=== PATIENT | female | born 1975 | race Caucasian/White ===

== ENCOUNTER 2023-06-22 22:58 | Emergency (ER) | payer MEDICAID, SELFPAY ==
[2023-06-22 22:59] VITALS: BP 137/87; PULSE 105; RESP 18; TEMP 35.6
[2023-06-22 23:00] VITALS: BP 137/87; PULSE 105; RESP 18; TEMP 35.6; BMI 38.0
--- NOTE | 2023-06-22 23:25 | EDS_ITS ---
HPI HPI - GI History of Present Illness Chief Complaint: Abd Pain Informant: patient Narrative Narrative: Abdominal cramping for 2 days. Yesterday morning 1 loose stool 1 vomiting nonbloody. No bowel movement since yesterday morning. She does not have daily bowel movements. She is passing gas. She states throughout the day yesterday increasing bloating with burping bile. Cholecystectomy in the past ventral hernia repair a year ago by Dr. Malave. No urinary symptoms. No fevers. Denies any current nausea. Has been tolerating oral fluids per patient. Prior similar symptoms: Yes PFSH PFSH Home Medications Ibuprofen [Motrin] 800 mg PO TID 07/12/15 [History Last Taken Unknown] Lisinopril/Hydrochlorothiazide [Zestoretic 20/25 Tablet] 1 tab PO DAILY 07/12/15 [History Last Taken Unknown] albuterol sulfate 90 mcg/actuation aerosol inhaler (Ventolin HFA) 2 puff inhalation Q6H PRN PRN Asthma 07/12/15 [History Last Taken Unknown] clonidine HCl 0.2 mg tablet 0.2 mg PO BID 07/12/15 [History Last Taken Unknown] montelukast 10 mg tablet 10 mg PO DAILY 07/12/15 [History Last Taken Unknown] multivitamin with folic acid 400 mcg tablet (Thera) 1 tab PO DAILY 07/12/15 [History Last Taken Unknown] albuterol sulfate 2.5 mg/3 mL (0.083 %) solution for nebulization 2.5 mg inhalation Q6H PRN PRN Sob &/Or Wheezing 11/04/16 [History Last Taken Unknown] cyclobenzaprine 10 mg tablet 10 mg PO TID PRN Muscle Spasm ##20 11/04/16 [Rx Last Taken Unknown] ibuprofen 800 mg tablet 800 mg PO Q8H PRN PRN Pain #20 tabs 11/04/16 [Rx Last Taken Unknown] ipratropium bromide 17 mcg/actuation HFA aerosol inhaler (Atrovent HFA) 1 puff inhalation PRN PRN Sob &/Or Wheezing 11/04/16 [History Last Taken Unknown] lisinopril 20 mg-hydrochlorothiazide 25 mg tablet (Zestoretic) 1 ea PO QHS PRN PRN Swelling 11/04/16 [History Last Taken Unknown] dicyclomine 20 mg tablet 20 mg PO TID PRN abdominal pain #20 tabs 06/23/23 [Rx Last Taken Unknown] ondansetron 4 mg disintegrating tablet 4 mg PO Q8H PRN PRN Nausea #10 tabs 06/23/23 [Rx Last Taken Unknown] Allergy/AdvReac Type Severity Reaction Status Date / Time morphine Allergy Hives Verified 06/22/23 23:00 Social History Smoking Status: Current every day smoker tobacco type: cigarettes ROS ROS ED Constitutional Constitutional ED: Denies chills, fever(s) or sweats Eyes Eyes: Denies change in vision ENT ENT ED: Denies dysphagia or sore throat Cardiovascular Cardiovascular: Denies chest pain, leg edema, palpitations or racing heartbeat Respiratory/Chest Respiratory/Chest: Denies cough, dyspnea or dyspnea on exertion Gastrointestinal Gastrointestinal: Reports abdominal pain, diarrhea and vomiting; Denies nausea Genitourinary Genitourinary ED: Denies dysuria, hematuria or urinary frequency Musculoskeletal Musculoskeletal: Denies back pain, extremity pain or neck pain Integumentary Denies rash or wounds Neurologic Neurologic: Denies headache(s), paresthesias or weakness EXAM Physical Exam Const Vital Signs: 06/22/23 23:00 06/22/23 22:59 06/23/23 00:46 Temperature 96.1 F L 96.1 F L Temperature Source Temporal Temporal Pulse Rate 105 H 105 H 89 Respiratory Rate 18 18 15 Blood Pressure 137/87 H 137/87 H 141/83 H Blood Pressure Mean 103 103 102 Pulse Ox 96 Oxygen Delivery Method Room Air 06/23/23 02:00 06/23/23 03:01 Temperature 98.1 F Temperature Source Pulse Rate 92 95 Respiratory Rate 18 16 Blood Pressure 146/96 H 156/98 H Blood Pressure Mean 112 117 Pulse Ox 98 97 Oxygen Delivery Method Room Air Positive well nourished and well developed General Appearance ED: well developed and NAD HEENT Reports moist mucous membranes and dry mucous membranes normocephalic and atraumatic Mouth ED: Yes dry mucous membranes Mouth: dry mucous membranes Eyes PERRL, EOMs intact bilaterally and conjunctivae normal General Eye ED: Yes normal appearance of both eyes Neck no lymphadenopathy and supple General: Negative for tenderness Chest Wall Chest: Negative for tenderness Resp normal respiratory effort and normal air movement Effort and Inspection: symmetric chest movement; Negative for respiratory distress Cardio regular rhythm and no murmurs Rate: tachycardic Peripheral Pulses: pulses 2+ throughout GI non-tender GI Narrative: hypoactive bowel sounds. Negative Rick's McBurney's tenderness. Palpation: Negative for guarding or rebound tenderness present Back/Spine no CVA tenderness and no thoracic nor lumbar tenderness Extremity normal to inspection General Extremety ED: Negative for edema or tenderness General Extremity: Negative for edema Neuro oriented x3 and no sensory deficits noted Sensorium / Orientation: awake and alert Skin no rashes or lesions noted and no wounds MDM MDM MDM Narrative Medical decision making narrative: Interventions / MDM: Differential diagnosis: Abdominal cramping Diagnosis considered but do not suspect: Small bowel obstruction however CT negative. No clinical ischemic colitis. My EKG interpretation: N/A Imaging independently reviewed and interpreted by myself: CT abdomen pelvis: No bowel obstruction. Per mild wall thickening of the central small bowel, per radiology infectious versus inflammatory and also in the differential for possible bowel ischemia. External documents reviewed: N/A Test considered but not ordered:N/A ED course: Patient nonsurgical abdomen. Cramping reported distention with burping. She had surgical history. Abdominal labs along with CT scan ordered to rule out bowel obstruction. Fluids were started. Patient did not require any pain medications. Labs white count normal lipase liver enzymes and renal function stable. CT scan radiology no obstruction small bowel thickening, related differential for bowel ischemia. Added a lactic acid was normal. Abdomen remains soft on reevaluation. Discussed with patient radiology read with bowel ischemia and differential. Discussed ordering CT angiogram for further evaluation however she declines at this time. Clinically there is no ischemic bowel there is no pain out of proportion. Shared decision was made with the patient. Patient is written for antispasmodics and antiemetics to use as needed. Return precaution discussed. All questions were answered. Re-evaluation: stable Disposition discussed with patient/family/significant other: Patient Case discussed with consulting clinician: N/A This note was generated with [employer] dictation software. It may contain incorrect words, spelling, and punctuation that were not noted in checking the note before signing. Lab Data Attestation: I reviewed the patient's lab results. Labs: Laboratory Results - last 24 hr 06/22/23 06/23/23 23:49 01:48 WBC 10.1 RBC 5.52 H Hgb 15.1 H Hct 46.4 MCV 84.1 MCH 27.4 MCHC 32.5 RDW Std Deviation 40.3 RDW Coeff of Camila 13.1 Plt Count 176 MPV 11.2 Immature Gran % (Auto) 0.500 Neut % (Auto) 69.7 Lymph % (Auto) 18.2 L [place] % (Auto) 10.0 Eos % (Auto) 1.1 Baso % (Auto) 0.5 Absolute Neuts (auto) 7.0 Absolute Lymphs (auto) 1.83 Nucleated RBC % 0 Sodium 133 L Potassium 3.3 L Chloride 100 Carbon Dioxide 28.0 Anion Gap 5 BUN 34 H Creatinine 1.03 H Estim Creat Clear Calc 81.58 Est GFR (MDRD) Af Amer 74 Est GFR (MDRD) Non-Af 61 BUN/Creatinine Ratio 33.0 H Glucose 153 H Lactic Acid 0.7 Calcium 8.8 Total Bilirubin 2.00 H AST 8 L ALT 13 Alkaline Phosphatase 76 Total Protein 7.2 Albumin 3.0 L Globulin 4.2 Albumin/Globulin Ratio 0.7 L Lipase 15 Radiography Diagnostic Testing: Clinical Impression(s) from Imaging Studies Abdomen/Pelvis CT 06/23/23 23:24 IMPRESSION: Mild wall thickening involving loops of central small bowel, as well as stranding and prominent lymph nodes in the central mesentery. This may be secondary to an infectious or inflammatory enteritis, but a follow-up CT angiogram with arterial and venous phase imaging is recommended to evaluate the mesenteric vessels in order to assess for possible bowel ischemia. Electronically Signed: Shen Root MD at 1:00 EDT , ADDENDUM: 06/23/23 0117 IMPRESSION: Mild wall thickening involving loops of central small bowel, as well as stranding and prominent lymph nodes in the central mesentery. This may be secondary to an infectious or inflammatory enteritis, but a follow-up CT angiogram with arterial and venous phase imaging is recommended to evaluate the mesenteric vessels in order to assess for possible bowel ischemia. N.B. : Zane Sainz DO, confirmed on 06/23/2023 01:10:13 (ET) that the healthcare facility has received the radiology report. Electronically Signed: Shen Root MD at 1:00 EDT , Discharge Plan Triage Chief Complaint: Abd Pain ED Provider: Zane Sainz Dx/Rx/DC Orders Clinical Impression: Abdominal cramping Instructions: Abdominal Pain Prescriptions: New ondansetron [ondansetron] 4 mg tablet,disintegrating 4 mg PO Q8H PRN PRN (Reason: Nausea) Qty: 10 0RF dicyclomine 20 mg tablet 20 mg PO TID PRN (Reason: abdominal pain) Qty: 20 0RF No Action clonidine HCl 0.2 MG tablet 0.2 mg PO BID montelukast 10 MG tablet 10 mg PO DAILY albuterol sulfate [Ventolin HFA] 1 INHALER inhaler 2 puff inhalation Q6H PRN PRN (Reason: Asthma) multivitamin with folic acid [Thera] 1 TABLET tablet 1 tab PO DAILY Ibuprofen [Motrin] 800 MG tablet 800 mg PO TID Lisinopril/Hydrochlorothiazide [Zestoretic 20/25 Tablet] 1 TABLET tablet 1 tab PO DAILY albuterol sulfate 2.5 MG/3 ML solution for nebulization 2.5 mg inhalation Q6H PRN PRN (Reason: Sob &/Or Wheezing) lisinopril-hydrochlorothiazide [Zestoretic] 1 EACH tablet 1 ea PO QHS PRN PRN (Reason: Swelling) ipratropium bromide [Atrovent HFA] 12.9 GM inhaler 1 puff inhalation PRN PRN (Reason: Sob &/Or Wheezing) cyclobenzaprine 10 MG tablet 10 mg PO TID PRN (Reason: Muscle Spasm) Qty: 20 0RF ibuprofen 800 MG tablet 800 mg PO Q8H PRN PRN (Reason: Pain) Qty: 20 0RF Primary Care Provider: Shantel Whitney Referrals: Shantel Whitney MD [Primary Care Provider] - 3-5 Days if not improving Town Doctor,Out of [Non-Staff] - Activity Restrictions/Additional Instructions: Your CT scan with no obstruction. There was thickening of your small bowels, recommended CT angiograms. You declined this in the ED. However your pain is not out of proportion to worry about any sick ischemic bowel. Monitor symptoms take medications as prescribed. If symptoms worsen, return to ED for evaluation. Otherwise follow-up with your doctor. Disposition Disposition: Home, Self Care Discharge Date/Time: 06/23/23 03:05
[2023-06-22 23:56] LABS: Absolute Lymphocyte Count 1.83 X10^3/uL (0.83-4.51); Basophil# 0.05 X10^3/uL; Basophil% 0.5 % (0-1); Eosinophil# 0.11 X10^3/uL; Eosinophils% 1.1 % (0-5); Hematocrit 46.4 % (37-47); Hemoglobin 15.1 g/dL (12.0-15.0); Lymphocyte # 1.83 X10^3/ul (0.83-4.51); Lymphocyte % 18.2 % (19-41); Mean Corp Hgb Conc 32.5 g/dL (32-36); Mean Corpuscular Hgb 27.4 pg (27.0-32.0); Mean Corpuscular Volume 84.1 fL (81-99); Mean Platelet Vol. 11.2 fl (6.2-12.0); Monocyte# 1.01 X10^3/uL; NRBC Flagged by Analyzer 0 % (0-5); Neutrophil # 7.01 X10^3/uL (2.7-7.7); Neutrophil % 69.7 % (47-70); Platelet Count 176 K/mm3 (150-450); RBC Distribution Width CV 13.1 % (11.6-14.6); RBC Distribution Width SD 40.3 fl (35.1-43.9); Red Blood Count 5.52 M/mm3 (4.2-5.4); White Blood Count 10.1 K/mm3 (4.4-11.0)
[2023-06-23] MEDS: 0.9% Normal Saline (1000mL) 1,000 ML 1000 ML IV (00:45)
[2023-06-23 00:46] VITALS: BP 141/83; PULSE 89; RESP 15; O2SAT 96
[2023-06-23 01:08] LABS: ALB/GLOB Ratio 0.7 RATIO (0.9-2.4); AST(SGOT) 8 U/L (15-37); Alanine Aminotransfer ALT/SGPT 13 U/L (13-56); Alkaline Phosphatase 76 U/L (45-117); Anion Gap 5 (5-15); BUN 34 mg/dL (7-18); Calcium,Total 8.8 mg/dL (8.5-10.1); Chloride 100 mmol/L (98-107); Creatinine, Serum 1.03 mg/dL (0.55-1.02); EST Glomerular Filtration Rate 61 mL/min (>60); Est Glom Filt Rate - Afr Amer 74 mL/min (>60); Estimated Creatinine Clearance 81.58 ml/min; Globulin 4.2 g/dL (2.2-4.2); Glucose 153 mg/dL (74-106); Lipase 15 U/L (13-75); Potassium 3.3 mmol/L (3.5-5.1); Protein, Total 7.2 g/dL (6.4-8.2); Sodium Level 133 mmol/L (136-145)
[2023-06-23 02:00] VITALS: BP 146/96; PULSE 92; RESP 18; O2SAT 98
[2023-06-23 02:38] LABS: Lactic Acid 0.7 mmol/L (0.4-1.9)
[2023-06-23 03:01] VITALS: BP 156/98; PULSE 95; RESP 16; TEMP 36.7; O2SAT 97
--- NOTE | 2023-06-23 23:24 | CT_ITS ---
ACR Level 3 findings have been noted. An addendum which confirms receipt of the report will follow. EXAM: CT ABDOMEN AND PELVIS WITHOUT INTRAVENOUS CONTRAST CLINICAL INDICATION: Pain TECHNIQUE: Helically acquired images were obtained of the abdomen and pelvis without intravenous contrast. This CT exam was performed using one or more of the following dose reduction techniques: automated exposure control, adjustment of the mA and/or kV according to patient size, and/or use of iterative reconstruction technique. RADIATION DOSE: CTDIvol = 21.89 mGy, DLP = 1082.96 mGy-cm COMPARISON: No relevant prior studies available. FINDINGS: LOWER THORAX: Unremarkable. Lung bases are clear. No cardiomegaly. No significant pericardial effusion. ABDOMEN: LIVER: Unremarkable. Homogeneous. GALLBLADDER AND BILE DUCTS: Cholecystectomy. No intra- or extrahepatic biliary ductal dilation. PANCREAS: Unremarkable. No focal cystic mass. SPLEEN: Unremarkable. Normal size without focal cystic or solid mass. ADRENALS: Unremarkable. No nodules. KIDNEYS AND URETERS: Unremarkable. Normal renal size and position. No hydronephrosis. STOMACH AND BOWEL: Some mild wall thickening involving loops of central small bowel. Diverticular disease of the colon but no diverticulitis. No stomach or bowel distention. PELVIS: APPENDIX: The appendix is normal. BLADDER: Unremarkable. REPRODUCTIVE: Unremarkable as visualized. No mass. ABDOMEN and PELVIS: INTRAPERITONEAL SPACE: Small amount of free fluid in the pelvis. No free air. BONES/JOINTS: Unremarkable. No suspicious lytic or blastic abnormality. SOFT TISSUES: Unremarkable. No discrete abdominal or pelvic wall hernia. VASCULATURE: Unremarkable. Abdominal aorta is non-dilated. LYMPH NODES: Some stranding and prominent lymph nodes in the central mesentery. CT/Abdomen/Pelvis without Cont IMPRESSION: Mild wall thickening involving loops of central small bowel, as well as stranding and prominent lymph nodes in the central mesentery. This may be secondary to an infectious or inflammatory enteritis, but a follow-up CT angiogram with arterial and venous phase imaging is recommended to evaluate the mesenteric vessels in order to assess for possible bowel ischemia. Electronically Signed: Shen Root MD at 1:00 EDT ,
== END 2023-06-23 03:05 | disposition home or self-care (01) ==
PROVIDERS: Emergency Provider Emergency Medicine; PCP Student in an Organized Health Care Education/Training Program; Visit Provider Emergency Medicine
DX: R10.9 Unspecified abdominal pain (principal); F17.210 Nicotine dependence, cigarettes, uncomplicated; Z90.49 Acquired absence of other specified parts of digestive tract
CPT/HCPCS: 74176; 80053; 83605; 83690; 85025; 96360; 99283; J7030; A4216

== ENCOUNTER 2025-02-21 09:09 | Observation (INO) | payer MEDICAID, SELFPAY ==
[2025-02-21] VITALS (14 sets, daily range): BP systolic 138–170; BP diastolic 63–83; PULSE 77–95; RESP 15–22; TEMP 36.1–37.2; O2SAT 94–97; BMI 45.2; BMI 42.5
--- NOTE | 2025-02-21 09:29 | EKG12_ITS ---
Test Reason : SOB Blood Pressure : */* mmHG Vent. Rate : 84 BPM Atrial Rate : 84 BPM P-R Int : 128 ms QRS Dur : 90 ms QT Int : 374 ms P-R-T Axes : 41 22 123 degrees QTcB Int : 441 ms Normal sinus rhythm T wave abnormality, consider lateral ischemia Abnormal ECG Confirmed by Angelo Jerez ([id number]), telegraph editor STEPHANIE SAAVEDRA ([id number]) on 02/23/2025 11:31:43 AM Also confirmed by Angelo Jerez ([id number]), telegraph editor STEPHANIE SAAVEDRA ([id number]) on 02/24/2025 10:56:07 AM Referred By: Confirmed By: Angelo Jerez
--- OUTSIDE RECORDS SUMMARY | 2025-02-21 09:35 | XMS RPT_ITS | CCD ---
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 [facility] Care Team Providers Care Audio Video Mechanic Name Role Phone Unavailable Primary Care Provider UnavailZane Modi Attending Unavailable Love Whitney Primary Care Unavailable MAU MALDONADO DO Admitting Unavailable LOVE WHITNEY MD Referring Unavailable LOVE WHITNEY MD Consulting Unavailable MAU MALDONADO DO Attending Unavailable MAU MALDONADO DO Primary Care Unavailable PROVIDER, UNKNOWN Consulting Unavailable PROVIDER, UNKNOWN Consulting Unavailable LOVE WHITNEY MD Attending Unavailable LOVE WHITNEY MD Consulting Unavailable LOVE WHITNEY MD Primary Care Unavailable LOVE WHITNEY MD Admitting Unavailable PROVIDER, UNKNOWN Consulting Unavailable PROVIDER, UNKNOWN Consulting Unavailable LOVE WHITNEY MD Admitting Unavailable LOVE WHITNEY MD Attending Unavailable LOVE WHITNEY MD Consulting Unavailable LOVE WHITNEY MD Primary Care Unavailable PROVIDER, UNKNOWN Consulting Unavailable PROVIDER, UNKNOWN Consulting Unavailable DAFNE JORGE Admitting Unavailable LOVE WHITNEY MD Consulting Unavailable DAFNE JORGE Attending Unavailable DAFNE JORGE Primary Care Unavailable PROVIDER, UNKNOWN Consulting Unavailable PROVIDER, UNKNOWN Consulting Unavailable LOVE WHITNEY MD Consulting Unavailable MAU MALDONADO DO Admitting Unavailable MAU MALDONADO DO Attending Unavailable MAU MALDONADO DO Primary Care Unavailable PROVIDER, UNKNOWN Consulting Unavailable PROVIDER, UNKNOWN Consulting Unavailable Allergies Allergy Classification Reported Allergen(s) Allergy Type Date of Onset Reaction(s) Facility (1 source) Morphine Drug Allergy 06-22-2023 [facility] (1 source) Morphine Drug Allergy 06-22-2023 [facility] Repository (1 source) Morphine Drug Allergy [facility] Repository Medications Current Medications Medication Drug Class(es) Dates Sig (Normalized) Sig (Original) albuterol 0.83 mg/ml inhalation solution (2 sources) beta2-Adrenergic Agonist Start: 11-04-2016 take 2.5 mg by inhalation every six hours as needed Albuterol Sulfate Active 2.5 MG INHALATION EVERY 6 HOURS NEEDED November 04, 2016 12:00am Start: 07-12-2015 Albuterol Sulf ate (Ventolin Hfa (Sp)) 1 INHALER inhaler Active 2 PUFF INHALATION EVERY 6 HOURS NEEDED July 12, 2015 12:00am cloNIDine hydrochloride 0.2 mg oral tablet (1 source) Central alpha-2 Adrenergic Agonist Start: 07-12-2015 take 0.2 mg by mouth twice daily Clonidine Hcl Active 0.2 MG PO TWICE A DAY July 12, 2015 12:00am cyclobenzaprine hydrochloride 10 mg oral tablet (1 source) Muscle Relaxant Start: 11-04-2016 take 10 mg by mouth three times daily Cyclobenzaprine Active 10 MG PO THREE TIMES A DAY November 04, 2016 12:00am dicyclomine hydrochloride 20 mg oral tablet (1 source) Anticholinergic Start: 06-23-2023 take 20 mg by mouth three times daily Dicyclomine Active 20 MG PO THREE TIMES A DAY June 23, 2023 2:54am hydroCHLOROthiazide 25 mg / lisinopril 20 mg oral tablet (2 sources) Thiazide Diuretic, Angiotensin Converting Enzyme Inhibitor Start: 11-04-2016 take 20-25 mg by mouth at bedtime as needed Lisinopril-Hydroch lorothiazide (Zestoretic 20-25 Mg Tablet) 1 EACH tablet Active 1 EACH PO AT BEDTIME NEEDED November 04, 2016 12:00am Start: 07-12-2015 Lisinopril/Hyd rochlorothiazide (Zestoretic 20/25 Tablet) 1 TABLET tablet Active 1 TABLET PO DAILY July 12, 2015 12:00am ibuprofen 800 mg oral tablet (2 sources) Nonsteroidal Anti-inflammatory Drug Start: 11-04-2016 take 800 mg by mouth every eight hours as needed Ibuprofen Active 800 MG PO EVERY 8 HOURS NEEDED November 04, 2016 12:49am Start: 07-12-2015 take 1 tablet by eliana th three times daily Ibuprofen (Motrin) 800 MG tablet Active 800 MG PO THREE TIMES A DAY July 12, 2015 12:00am 200 actuat ipratropium bromide 0.017 mg/actuat metered dose inhaler (1 source) Anticholinergic Start: 11-04-2016 Ipratropium [place] (Atrovent (Sp)) 12.9 GM inhaler Active 1 PUFF INHALATION NEEDED November 04, 2016 12:00am montelukast 10 mg oral tablet (1 source) Leukotriene Receptor Antagonist Start: 07-12-2015 take 10 mg by mouth once daily Montelukast Active 10 MG PO DAILY July 12, 2015 12:00am Multivitamin With Folic Acid (Thera) 1 TABLET tablet (1 source) Start: 07-12-2015 take 1 tablet by mouth once daily Multivitamin With Folic Acid (Thera) 1 TABLET tablet Active 1 TABLET PO DAILY July 12, 2015 12:00am ondansetron 4 mg disintegrating oral tablet (1 source) Serotonin-3 Receptor Antagonist Start: 06-23-2023 take 4 mg by mouth every eight hours as needed Ondansetron Active 4 MG PO EVERY 8 HOURS NEEDED June 23, 2023 12:00am Problems Problem Classification Problem Date Documented Da te Episodic/Chronic Abdominal hernia (1 source) Ventral hernia without obstruction or gangrene; Translations: [Ventral hernia without obstruction or gangrene] Onset: 10-13-2023 Episodic Abdominal pain (2 sources) Finding of sensation of abdomen; Translations: [Unspecified abdominal pain] Onset: 06-28-2023 06-23-2023 Episodic Essential hypertension (1 source) Essential (primary) hypertension; Translations: [Essential (primary) hypertension] Onset: 10-13-2023 Chronic Other aftercare (1 source) Other mcc (current) drug therapy; Translations: [Other mcc (current) drug therapy] Onset: 10-13-2023 Episodic Other nutritional; endocrine; and metabolic disorders (1 source) Morbid (severe) obesity due to excess calories; Translations: [Morbid (severe) obesity due to excess calories] Onset: 10-13-2023 Chronic Results Test Name Value Interpretation Reference Range Facility CBC + DIFFon 10-13-2023 Baso # 0.01 x10EE3/UL Normal 0.00 - 0.10 [facility] Comment on above: Performed By: #### 2 [id number] #### [facility],[address] [place] [address] Basophils/100 WBC (Bld) 0.1 % Normal 0.0 - 2.0 [facility] Comment on above: Performed By: #### 2 91998 #### [facility],[address] [place] [address] CBC + DIFF Normal [facility] Comment on above: Result Comment: CBC- COMPLETE BLOOD COUNT Performed By: #### 2 43061 #### [facility],[address] [place] [address] EO # 0.18 x10EE3/UL Normal 0.00 - 0.50 [facility] Comment on above: Performed By: #### 2 19309 #### [place] [address] Eosinophils/100 WBC (Bld) 2.1 % Normal 0.0 - 7.0 [facility] Comment on above: Performed By: #### 2 72054 #### [place] [address] Erythrocyte distribution width (RBC) [Ratio] 14.3 % Normal 12.0 - 15.6 [facility] Comment on above: Performed By: #### 2 24705 #### [place] [address] Hematocrit (Bld) [Volume fraction] 41.8 % Normal 34.0 - 46.0 [facility] Comment on above: Performed By: #### 2 56790 #### [facility],[address] [place] [address] Hemoglobin (Bld) [Mass/Vol] 14.3 g/dL Normal 12.0 - 16.0 [facility] Comment on above: Performed By: #### 2 56913 #### [facility],[address] [place] [address] Lymph # 1.56 x10EE3/UL Normal 0.80 - 2.80 [facility] Comment on above: Performed By: #### 2 65963 #### [address],[place] [address] Lymphocytes/100 WBC (Bld) 17.4 % Low 20.0 - 45.0 [facility] Comment on above: Performed By: #### 2 94246 #### [facility],[address] [place] [address] MANUAL DIFF N/A Normal [facility] Comment on above: Performed By: #### 2 89116 #### [facility],[address] [place] [address] MCH (RBC) [Entitic mass] 28 pg Normal 27 - 33 [facility] Comment on above: Performed By: #### 2 78173 #### [facility],[address] [place] [address] MCHC 34 X10 3 Normal 32 - 36 [facility] Comment on above: Performed By: #### 2 63571 #### [place] [address] MCV (RBC) [Entitic vol] 83 fL Normal 80 - 99 [facility] Comment on above: Performed By: #### 2 01992 #### [facility],[address] [place] [address] [place] # 0.39 x10EE3/UL Normal 0.20 - 1.00 [facility] Comment on above: Performed By: #### 2 62497 #### [facility],[address] [place] [address] MONOS % 4.3 % Normal 0.0 - 10.0 [facility] Comment on above: Performed By: #### 2 70387 #### [place] [address] Morphology Jayson (Bld) [Interp] N/A Normal [facility] Comment on above: Performed By: #### 2 62275 #### [facility],[address],[place] [address] Neut # 6.84 x10EE3/UL Normal 1.50 - 7.10 [facility] Comment on above: Performed By: #### 2 31747 #### [facility],[address] [place] [address]45[address] Neutrophils/100 WBC (Bld) 76.2 % High 46.0 - 76.0 [facility] Comment on above: Performed By: #### 2 48533 #### [facility],[address] [place] [address] 56803 PLATELET 200 x10EE3/UL Normal 150 - 450 [facility] Comment on above: Performed By: #### 2 49469 #### [facility],[address] [place] [address] 82567 Platelet mean volume (Bld) [Entitic vol] 9.0 fL Normal 6.6 - 10.5 [facility] Comment on above: Result Comment: AUTO MATED DIFFERENTIAL Performed By: #### 2 22277 #### [facility],[address] [place] [address] 50762 RBC 5.06 x 10EE6/UL Normal 4.10 - 5.30 [facility] Comment on above: Performed By: #### 2 03518 #### [facility],[address] [place] [address] 34021 WBC 9.0 x 10EE3/UL Normal 4.5 - 10.8 [facility] Comment on above: Performed By: #### 2 03316 #### [facility],[address] [place] [address] 32598 CHEST 1 VIEWon 10-13-2023 CHEST 1 VIEW [place] [address] Patient: TATYANA SPENCE Phone#: : 1975 Age: 47 Gender: F Pt. Type: ER Account: [id number] Location: [facility] Ordering: MAU MALDONADO Exam Date: 10/13/2023/20:02 Family Phys: LOVE WHITNEY Charge Code: [id number] Physician: [place] Order #: [id number] Dose#: PROCEDURE: X-RAY CHEST 1 VIEW COMPARISON: [facility], XR, CHEST 2 VIEWS, 03/02/2021, 8:57. INDICATIONS: Dyspnea. FINDINGS: LUNGS: Increased interstitial markings. No focal asymmetric abnormality. VASCULATURE: Normal. Unremarkable pulmonary vasculature. CARDIAC: Cardiomegaly MEDIASTINUM: Normal. No visible mass or adenopathy. PLEURA: Normal. No effusion or pleural thickening. BONES: Normal. No fracture or visible bony lesion. OTHER: Negative. CONCLUSION: 1. Cardiomegaly 2. Increased interstitial markings concerning for pulmonary edema. Dictated by: Natalia Arias MD on 10/14/2023 at 9:28 Approved by: Natalia Arias MD on 10/14/2023 at 9:30 Normal [facility] CMP with eGFRon 10-13-2023 AGE 47 years Normal [facility] Comment on above: Performed By: #### 2 94648 #### [facility],[address] [place] [address] 57781 Albumin [Mass/Vol] 3.3 g/dL Low 3.4 - 5.0 [facility] Comment on above: Performed By: #### 2 24006 #### [facility],[address] [place] [address] 68859 Albumin/Globulin [Mass ratio] 1.0 {ratio} Normal 0.9 - 1.6 [facility] Comment on above: Performed By: #### 2 93415 #### [facility],[address] [place] [address] 58980 ALK PHOS 100 U/L Normal 46 - 116 [facility] Comment on above: Performed By: #### 2 04254 #### [facility],[address] [place] [address] 93591 ALT [Catalytic activity/Vol] 24 U/L Normal 16 - 63 [facility] Comment on above: Performed By: #### 2 72579 #### [facility],[address] [place] [address] 68584 Anion gap [Moles/Vol] 10 mmol/L Normal 10 - 20 [facility] Comment on above: Performed By: #### 2 62935 #### [facility],[address] [place] [address] 88254 AST [Catalytic activity/Vol] 15 U/L Normal 13 - 39 [facility] Comment on above: Performed By: #### 2 39840 #### [facility],[address] [place] [address] 78888 B/C RATIO 15 ratio Normal 0 - 30 [facility] Comment on above: Performed By: #### 2 67781 #### [facility],[address] [place] [address] 13499 Bilirubin [Mass/Vol] 1.2 mg/dL High 0.2 - 1.0 [facility] Comment on above: Performed By: #### 2 33710 #### [facility],[address] [place] [address] 68275 Calcium [Mass/Vol] 8.6 mg/dL Normal 8.5 - 10.1 [facility] Comment on above: Performed By: #### 2 23130 #### [facility],[address] [place] [address] 41524 Chloride [Moles/Vol] 103 mmol/L Normal 98 - 107 [facility] Comment on above: Performed By: #### 2 34011 #### [facility],[address] [place] [address] 61096 CMP with eGFR Normal [facility] Comment on above: Result Comment: COMP REHENSIVE METABOLIC PANEL Performed By: #### 2 58224 #### [facility],[address] [place] [address] 51742 CO2 [Moles/Vol] 28.3 mmol/L Normal 21.0 - 32.0 [facility] Comment on above: Performed By: #### 2 74045 #### [facility],[address] [place] [address] 77836 Creatinine [Mass/Vol] 0.98 mg/dL Normal 0.55 - 1.02 [facility] Comment on above: Performed By: #### 2 12622 #### [facility],[address] [place] [address] 76015 GFR/1.73 sq M.predicted among non-blacks MDRD (S/P/Bld) [Vol rate/Area] mL/min/{1.73_m2} Normal 60 - 999 [facility] Comment on above: Performed By: #### 2 65924 #### [facility],[address] [place] [address] 19565 Result Comment: ACCO RDING TO THE NATIONAL KIDNEY DISEASE EDUCATION PROGRAM(NKDE), A NORMAL eGFR IS A VALUE GREATER THAN OR EQUAL TO 60 ML/MIN/1.73 SQ METERS. CHRONIC KIDNEY DISEASE: <60mL/MIN/1.73 SQ METERS KIDNEY FAILURE: <15mL/MIN/1.73 SQ METERS THIS TEST SHOULD ONLY BE USED FOR PATIENTS 18 YEARS OF AGE AND OLDER. Globulin (S) [Mass/Vol] 3.4 g/dL Normal 1.5 - 3.8 [facility] Comment on above: Performed By: #### 2 69262 #### [facility],[address] [place] [address] 58245 Glucose [Mass/Vol] 163 mg/dL High 74 - 106 [facility] Comment on above: Performed By: #### 2 01024 #### [facility],[address] [place] [address] 57010 Potassium [Moles/Vol] 3.5 mmol/L Normal 3.5 - 5.1 [facility] Comment on above: Performed By: #### 2 22729 #### [facility],[address] [place] [address] 64680 Protein [Mass/Vol] 6.7 g/dL Normal 6.4 - 8.2 [facility] Comment on above: Performed By: #### 2 67907 #### [facility],[address] [place] [address] 68454 Sodium [Moles/Vol] 138 mmol/L Normal 136 - 145 [facility] Comment on above: Performed By: #### 2 52324 #### [facility],[address] [place] [address] 93684 Urea nitrogen [Mass/Vol] 15 mg/dL Normal 7 - 18 [facility] Comment on above: Performed By: #### 2 12049 #### [facility],[address] [place] [address] 38138 D-DIMER, QUANTITATIVEon 10-02 D-DIMER QUANT <200 Normal 0 - 230 [facility] Comment on above: Performed By: #### 2 32078 #### [facility],[address] [place] [address] 72911 D-DIMER, QUANTITATIVE Normal [facility] Comment on above: Result Comment: MCKAY T D-DIMER Performed By: #### 2 92948 #### [facility],[address] [place] [address] 63724 NT-proBNPon 10-13-2023 Natriuretic peptide B (Bld) [Mass/Vol] 312 pg/mL High 0 - 125 [facility] Comment on above: Performed By: #### 2 20958 #### [facility],[address] [place] [address] 40819 TROPONIN I, HIGH SENSITIVITY on 10-13-2023 HS TROPONIN 8.8 pg/mL Normal 0.0 - 51.4 [facility] Comment on above: Performed By: #### 2 81406 #### [facility],[address] [place] [address] 36067 HS TROPONIN 6.6 pg/mL Normal 0.0 - 51.4 [facility] Comment on above: Performed By: #### 2 27643 #### [facility],[address] [facility] [address] Abdomen/Pelvis without Conto n 06-24-2023 Abdomen/Pelvis without Cont [facility] [address] [place] [address] Abdomen/Pelvis without Cont MR#: [id number] Acct: [id number] Name: TATYANA SPENCE Rep #: [id number] : 1975 F 47 From: Shen Root MD PCP: Dr. Love Whitney MD Status: REG ER Study: Abdomen/Pelvis without Cont Date of Exam: 06/03 03/27 Exam# [id number] Ordering Dr: Zane Sainz DO ADDENDUM by Dr. Shen Root MD on 06/23/23 at 0100 [id number] EXAM: CT ABDOMEN AND PELVIS WITHOUT INTRAVENOUS CONTRAST CLINICAL INDICATION: Pain TECHNIQUE: Helically acquired images were obtained of the abdomen and pelvis without intravenous contrast. This CT exam was performed using one or more of the following dose reduction techniques: automated exposure control, adjustment of the mA and/or kV according to patient size, and/or use of iterative reconstruction technique. RADIATION DOSE: CTDIvol = 21.89 mGy, DLP = 1082.96 mGy-cm COMPARISON: No relevant prior studies available. FINDINGS: LOWER THORAX: Unremarkable. Lung bases are clear. No cardiomegaly. No significant pericardial effusion. ABDOMEN: LIVER: Unremarkable. Homogeneous. GALLBLADDER AND BILE DUCTS: Cholecystectomy. No intra- or extrahepatic biliary ductal dilation. PANCREAS: Unremarkable. No focal cystic mass. SPLEEN: Unremarkable. Normal size without focal cystic or solid mass. ADRENALS: Unremarkable. No nodules. KIDNEYS AND URETERS: Unremarkable. Normal renal size and position. No hydronephrosis. STOMACH AND BOWEL: Some mild wall thickening involving loops of central small bowel. Diverticular disease of the colon but no diverticulitis. No stomach or bowel distention. PELVIS: APPENDIX: The appendix is normal. BLADDER: Unremarkable. REPRODUCTIVE: Unremarkable as visualized. No mass. ABDOMEN and PELVIS: INTRAPERITONEAL SPACE: Small amount of free fluid in the pelvis. No free air. BONES/JOINTS: Unremarkable. No suspicious lytic or blastic abnormality. SOFT TISSUES: Unremarkable. No discrete abdominal or pelvic wall hernia. VASCULATURE: Unremarkable. Abdominal aorta is non-dilated. LYMPH NODES: Some stranding and prominent lymph nodes in the central mesentery. 06/23/23 0100 Date cc: Dr. Love Whitney MD; Dr. Zane Sainz DO * Signed ADDENDUM by Dr. Shen Root MD on 06/23/[address]/Abdomen/Pelvis without Cont IMPRESSION: Mild wall thickening involving loops of central small bowel, as well as stranding and prominent lymph nodes in the central mesentery. This may be secondary to an infectious or inflammatory enteritis, but a follow-up CT angiogram with arterial and venous phase imaging is recommended to evaluate the mesenteric vessels in order to assess for possible bowel ischemia. N.B. : Zane Sainz DO, confirmed on 06/23/2023 01:10:13 (ET) that the healthcare facility has received the radiology report. Electronically Signed: Shen Root MD at 1:00 EDT , 06/23/23 0117 Date cc: Dr. Love Whitney MD; Dr. Zane Sainz DO * Signed ACR Level 3 findings have been noted. An addendum which confirms receipt of the report will follow. [id number] EXAM: CT ABDOMEN AND PELVIS WITHOUT INTRAVENOUS CONTRAST CLINICAL INDICATION: Pain TECHNIQUE: Helically acquired images were obtained of the abdomen and pelvis without intravenous contrast. This CT exam was performed using one or more of the following dose reduction techniques: automated exposure control, adjustment of the mA and/or kV according to patient size, and/or use of iterative reconstruction technique. RADIATION DOSE: CTDIvol = 21.89 mGy, DLP = 1082.96 mGy-cm COMPARISON: No relevant prior studies available. FINDINGS: LOWER THORAX: Unremarkable. Lung bases are clear. No cardiomegaly. No significant pericardial effusion. ABDOMEN: LIVER: Unremarkable. Homogeneous. GALLBLADDER AND BILE DUCTS: Cholecystectomy. No intra- or extrahepatic biliary ductal dilation. PANCREAS: Unremarkable. No focal cystic mass. SPLEEN: Unremarkable. Normal size without focal cystic or solid mass. ADRENALS: Unremarkable. No nodules. KIDNEYS AND URETERS: Unremarkable. Normal renal size and position. No hydronephrosis. STOMACH AND BOWEL: Some mild wall thickening involving loops of central small bowel. Diverticular disease of the colon but no diverticulitis. No stomach or bowel distention. PELVIS: APPENDIX: The appendix is normal. BLADDER: Unremarkable. REPRODUCTIVE: Unremarkable as visualized. No mass. ABDOMEN and PELVIS: INTRAPERITONEAL SPACE: Small amount of free fluid in the pelvis. No free air. CORNELIO (more content not included)... Normal [facility] Basophil percentageOrdered B y: Zane Sainz on 06-23-2023 Lactate [Moles/Vol] 0.7 mmol/L 0.4-2.0 [facility] CBC W/Diff, Automatedon 06-03 Absolute Lymph 1.83 X10 3/uL Normal 0.83-4.51 [facility] Comment on above: Performed By: #### L 501.2450, L500.4050, L100.0100 #### [facility] [address] [place], [address] Absolute Neut 7.0 X10 3/uL Normal 2.0-7.7 [facility] Comment on above: Performed By: #### L 501.2450, L500.4050, L100.0100 #### [facility] [address] [place], [address] Basophils/100 WBC (Bld) 0.5 % Normal 0-1 [facility] Comment on above: Performed By: #### L 501.2450, L500.4050, L100.0100 #### [facility] [address] [place], [address] Eosinophils/100 WBC (Bld) 1.1 % Normal 0-5 [facility] Comment on above: Performed By: #### L 501.2450, L500.4050, L100.0100 #### [facility] [address] [place], [address] Erythrocyte distribution width (RBC) [Ratio] 13.1 % Normal 11.6-14.6 [facility] Comment on above: Performed By: #### L 501.2450, L500.4050, L100.0100 #### [facility] [address] [place], [address] Hematocrit (Bld) [Volume fraction] 46.4 % Normal 37-47 [facility] Comment on above: Performed By: #### L 501.2450, L500.4050, L100.0100 #### [facility] [address] [place], [address] Hemoglobin (Bld) [Mass/Vol] 15.1 g/dL High 12.0-15.0 [facility] Comment on above: Performed By: #### L 501.2450, L500.4050, L100.0100 #### [facility] [address] [place], [address] IG% 0.500 Normal 0.0-0.9 [facility] Comment on above: Result Comment: IG% - Immature Granulocytes (promyelocytes, myelocytes and metamyelocytes) > 1% indicates that a LEFT SHIFT is Present. Performed By: #### L 501.2450, L500.4050, L100.0100 #### [facility] [address] [place], [address] Lymphocytes/100 WBC (Bld) 18.2 % Low 19-41 [facility] Comment on above: Performed By: #### L 501.2450, L500.4050, L100.0100 #### [facility] [address] [place], [address] MCH (RBC) [Entitic mass] 27.4 pg Normal 27.0-32.0 [facility] Comment on above: Performed By: #### L 501.2450, L500.4050, L100.0100 #### [facility] [address] [place], [address] MCHC (RBC) [Mass/Vol] 32.5 g/dL Normal 32-36 [facility] Comment on above: Performed By: #### L 501.2450, L500.4050, L100.0100 #### [facility] [address] [place], [address] MCV (RBC) [Entitic vol] 84.1 fL Normal 81-99 [facility] Comment on above: Performed By: #### L 501.2450, L500.4050, L100.0100 #### [facility] [address] [place], [address] Monocytes/100 WBC (Bld) 10.0 % Normal 0-10 [facility] Comment on above: Performed By: #### L 501.2450, L500.4050, L100.0100 #### [facility] [address] [place], [address] Neutrophils/100 WBC (Bld) 69.7 % Normal 47-70 [facility] Comment on above: Performed By: #### L 501.2450, L500.4050, L100.0100 #### [facility] [address] [place], [address] Nucleated RBC (Bld) [#/Vol] 0 10*3/uL Normal 0-5 [facility] Comment on above: Performed By: #### L 501.2450, L500.4050, L100.0100 #### [facility] [address] [place], [address] Platelet mean volume (Bld) [Entitic vol] 11.2 fL Normal 6.2-12.0 [facility] Comment on above: Performed By: #### L 501.2450, L500.4050, L100.0100 #### [facility] [address] [place], [address] Platelets (Bld) [#/Vol] 176 10*3/uL Normal 150-450 [facility] Comment on above: Performed By: #### L 501.2450, L500.4050, L100.0100 #### [facility] [address] [place], [address] RBC (Bld) [#/Vol] 5.52 10*6/uL High 4.2-5.4 [facility] Comment on above: Performed By: #### L 501.2450, L500.4050, L100.0100 #### [facility] [address] [place], [address] RDW SD 40.3 fl Normal 35.1-43.9 [facility] Comment on above: Performed By: #### L 501.2450, L500.4050, L100.0100 #### [facility] [address] [place], [address] WBC (Bld) [#/Vol] 10.1 10*3/uL Normal 4.4-11.0 [facility] Comment on above: Performed By: #### L 501.2450, L500.4050, L100.0100 #### [facility] [address] [place], [address] Comprehensive Metabolic Prof ilon 06-23-2023 Albumin [Mass/Vol] 3.0 g/dL Low 3.2-5.0 [facility] Comment on above: Performed By: #### L 501.2450, L500.4050, L100.0100 #### [facility] [address] [place], [address] Albumin/Globulin [Mass ratio] 0.7 {ratio} Low 0.9-2.4 [facility] Comment on above: Performed By: #### L 501.2450, L500.4050, L100.0100 #### [facility] [address] [place], [address] ALK P 76 U/L Normal 45-117 [facility] Comment on above: Performed By: #### L 501.2450, L500.4050, L100.0100 #### [facility] [address] [place], [address] ALT [Catalytic activity/Vol] 13 U/L Normal 13-56 [facility] Comment on above: Performed By: #### L 501.2450, L500.4050, L100.0100 #### [facility] [address] [place], [address] AST [Catalytic activity/Vol] 8 U/L Low 15-37 [facility] Comment on above: Performed By: #### L 501.2450, L500.4050, L100.0100 #### [facility] [address] [place], [address] Bilirubin [Mass/Vol] 2.00 mg/dL High 0.20-1.[address] [facility] Comment on above: Result Comment: For patients on eltrombopag therapy, use of Dimension Lyons TBIL is not recommended. Performed By: #### L 501.2450, L500.4050, L100.0100 #### [facility] [address] [place], [address] BUN/CRE 33.0 RATIO High 10-20 [facility] Comment on above: Performed By: #### L 501.2450, L500.4050, L100.0100 #### [facility] [address] [place], [address] CA,Total 8.8 mg/dL Normal 8.5-10.1 [facility] Comment on above: Performed By: #### L 501.2450, L500.4050, L100.0100 #### [facility] [address] [place], [address] Chloride [Moles/Vol] 100 mmol/L Normal 98-[address] [facility] Comment on above: Performed By: #### L 501.2450, L500.4050, L100.0100 #### [facility] [address] [place], [address] CO2 [Moles/Vol] 28.0 mmol/L Normal 21.0-32.0 [facility] Comment on above: Performed By: #### L 501.2450, L500.4050, L100.0100 #### [facility] [address] [place], [address] Creatinine [Mass/Vol] 1.03 mg/dL High 0.55-1.02 [facility] Comment on above: Result Comment: The validity of the calculated GFR GFRAA in patients over 70 years has not been determined. Clinical correlation is essential. Performed By: #### L 501.2450, L500.4050, L100.0100 #### [facility] [address] [place], [address] ECRCL 81.58 ml/min Normal [facility] Comment on above: Performed By: #### L 501.2450, L500.4050, L100.0100 #### [facility] [address] [place], [address] EST GFR - AA 74 mL/min Normal >60 [facility] Comment on above: Result Comment: Afri can Montenegrin GFR Calc Performed By: #### L 501.2450, L500.4050, L100.0100 #### [facility] [address] [place], [address] GAP 5 Normal 5-15 [facility] Comment on above: Performed By: #### L 501.2450, L500.4050, L100.0100 #### [facility] [address] [place], [address] GFR/1.73 sq M.predicted among non-blacks MDRD (S/P/Bld) [Vol rate/Area] 61 mL/min/{1.73_m2} Normal >60 [facility] Comment on above: Result Comment: Non- GFR Calc Performed By: #### L 501.2450, L500.4050, L100.0100 #### [facility] [address] [place], [address] Globulin (S) [Mass/Vol] 4.2 g/dL Normal 2.2-4.2 [facility] Comment on above: Performed By: #### L 501.2450, L500.4050, L100.0100 #### [facility] [address] [place], [address] Glucose [Mass/Vol] 153 mg/dL High 74-106 [facility] Comment on above: Result Comment: Fast ing Glucose result greater than or equal to 126 mg/dL suggests DIABETES MELLITUS per A.D.A. criteria. Performed By: #### L 501.2450, L500.4050, L100.0100 #### [facility] [address] [place], [address] Potassium [Moles/Vol] 3.3 mmol/L Low 3.5-5.1 [facility] Comment on above: Performed By: #### L 501.2450, L500.4050, L100.0100 #### [facility] [address] [place], [address] Sodium [Moles/Vol] 133 mmol/L Low 136-145 [facility] Comment on above: Performed By: #### L 501.2450, L500.4050, L100.0100 #### [facility] [address] [place], [address] T PROT 7.2 g/dL Normal 6.4-8.2 [facility] Comment on above: Performed By: #### L 501.2450, L500.4050, L100.0100 #### [facility] [address] [place], [address] Urea nitrogen [Mass/Vol] 34 mg/dL High 7-18 [facility] Comment on above: Performed By: #### L 501.2450, L500.4050, L100.0100 #### [facility] [address] [place], [address] Emergency Department Summary on 06-23-2023 Emergency Department Summary [facility] Medical Records Department [address] [place] [address] Emergency Department Summary 06/22/23 MR#: [id number] Acct: [id number] Name: TATYANA SPENCE Rep #: [id number] : 1975 47 From: Zane [place] PCP: Dr. Love Whitney MD Status:DEP ER Location: ED HPI HPI - GI History of Present Illness Chief Complaint: Abd Pain Informant: patient Narrative Narrative: Abdominal cramping for 2 days. Yesterday morning 1 loose stool 1 vomiting nonbloody. No bowel movement since yesterday morning. She does not have daily bowel movements. She is passing gas. She states throughout the day yesterday increasing bloating with burping bile. Cholecystectomy in the past ventral hernia repair a year ago by Dr. Jorge. No urinary symptoms. No fevers. Denies any current nausea. Has been tolerating oral fluids per patient. Prior similar symptoms: Yes PFSH PFSH Home Medications Ibuprofen [Motrin] 800 mg PO TID 07/12/15 [History Last Taken Unknown] Lisinopril/Hydrochlo rothiazide [Zestoretic 20/25 Tablet] 1 tab PO DAILY 07/12/15 [History Last Taken Unknown] albuterol sulfate 90 mcg/actuation aerosol inhaler (Ventolin HFA) 2 puff inhalation Q6H PRN PRN Asthma 07/12/15 [History Last Taken Unknown] clonidine HCl 0.2 mg tablet 0.2 mg PO BID 07/12/15 [History Last Taken Unknown] montelukast 10 mg tablet 10 mg PO DAILY 07/12/15 [History Last Taken Unknown] multivitamin with folic acid 400 mcg tablet (Thera) 1 tab PO DAILY 07/12/15 [History Last Taken Unknown] albuterol sulfate 2.5 mg/3 mL (0.083 %) solution for nebulization 2.5 mg inhalation Q6H PRN PRN Sob /Or Wheezing 11/04/16 [History Last Taken Unknown] cyclobenzaprine 10 mg tablet 10 mg PO TID PRN Muscle Spasm ##20 11/04/16 [Rx Last Taken Unknown] ibuprofen 800 mg tablet 800 mg PO Q8H PRN PRN Pain #20 tabs 11/04/16 [Rx Last Taken Unknown] ipratropium bromide 17 mcg/actuation HFA aerosol inhaler (Atrovent HFA) 1 puff inhalation PRN PRN Sob /Or Wheezing 11/04/16 [History Last Taken Unknown] lisinopril 20 mg-hydrochlorothiazi de 25 mg tablet (Zestoretic) 1 ea PO QHS PRN PRN Swelling 11/04/16 [History Last Taken Unknown] dicyclomine 20 mg tablet 20 mg PO TID PRN abdominal pain #20 tabs 06/23/23 [Rx Last Taken Unknown] ondansetron 4 mg disintegrating tablet 4 mg PO Q8H PRN PRN Nausea #10 tabs 06/23/23 [Rx Last Taken Unknown] Allergy/AdvReac Type Severity Reaction Status Date / Time morphine Allergy Hives Verified 06/22/23 23:00 Social History Smoking Status: Current every day smoker tobacco type: cigarettes ROS ROS ED Constitutional Constitutional ED: Denies chills, fever(s) or sweats Eyes Eyes: Denies change in vision ENT ENT ED: Denies dysphagia or sore throat Cardiovascular Cardiovascular: Denies chest pain, leg edema, palpitations or racing heartbeat Respiratory/Chest Respiratory/Chest: Denies cough, dyspnea or dyspnea on exertion Gastrointestinal Gastrointestinal: Reports abdominal pain, diarrhea and vomiting; Denies nausea Genitourinary Genitourinary ED: Denies dysuria, hematuria or urinary frequency Musculoskeletal Musculoskeletal: Denies back pain, extremity pain or neck pain Integumentary Denies rash or wounds Neurologic Neurologic: Denies headache(s), paresthesias or weakness EXAM Physical Exam Const Vital Signs: 06/22/23 23:00 06/22/23 22:59 06/23/23 00:46 Temperature 96.1 F L 96.1 F L Temperature Source Temporal Temporal Pulse Rate 105 H 105 H 89 Respiratory Rate 18 18 15 Blood Pressure 137/87 H 137/87 H 141/83 H Blood Pressure Mean 103 103 102 Pulse Ox 96 Oxygen Delivery Method Room Air 06/23/23 02:00 06/23/23 03:01 Temperature 98.1 F Temperature Source Pulse Rate 92 95 Respiratory Rate 18 16 Blood Pressure 146/96 H 156/98 H Blood Pressure Mean 112 117 Pulse Ox 98 97 Oxygen Delivery Method Room Air Positive well nourished and well developed General Appearance ED: well developed and NAD HEENT Reports moist mucous membranes and dry mucous membranes normocephalic and atraumatic Mouth ED: Yes dry mucous membranes Mouth: dry mucous membranes Eyes PERRL, EOMs intact bilaterally and conjunctivae normal General Eye ED: Yes normal appearance of both eyes Neck no lymphadenopathy and supple General: Negative for tenderness Chest Wall Chest: Negative for tenderness Resp normal respiratory effort and normal air movement Effort and Inspection: symmetric chest movement; Negative for respiratory distress Cardio regular rhythm and no murmurs Rate: tachycardic Peripheral Pulses: pulses 2+ throughout GI non-tender GI Narrative: hypoactive bowel sounds. Negative Rick's McBurney's tenderness. Palpation: Negative for guarding or rebound tenderness prese (more content not included)... Normal [facility] Lactic Acidon 06-23-2023 Lactate [Moles/Vol] 0.7 mmol/L Normal 0.4-1.9 [facility] Comment on above: Order Comment: Y Performed By: #### L 503.6005 #### [facility] [address] [place], [address] Lipaseon 06-23-2023 Lipase [Catalytic activity/Vol] 15 U/L Normal 13-75 [facility] Comment on above: Result Comment: Kimmy tolentino note: LIPASE revised reference range effective 22. New Lipase methodology. Expected to produce lower values than the previous assay method. NEW Reference Range: 13 - 75 U/L Performed By: #### L 501.2450, L500.4050, L100.0100 #### [facility] [address] [place], [address] Absolute lymphocyte countOrd ered By: Zane Sainz on 06-22-2023 Lymphocytes Auto (Unsp spec) [#/Vol] 1.83 10*3/uL 0.83-4.51 [facility] Automated lymphocyte count a s percentage of total leukocytesOrdered By: Zane Sainz on 06-22-2023 Lymphocytes/100 WBC Auto (Unsp spec) 18.2 % 19-41 [facility] Basophil percentageOrdered B y: Zane Sainz on 06-22-2023 Basophils/100 WBC (Bld) 0.5 % 0-1 [facility] Bilirubin [Mass/Vol] 2.00 mg/dL 0.20-1.[address] [facility] Comment on above: For patients on eltr ombopag therapy, use of Dimension Lyons TBIL is not recommended. Chloride [Moles/Vol] 100 mmol/L 98-[address] [facility] Eosinophils/100 WBC (Bld) 1.1 % 0-5 [facility] Glucose [Mass/Vol] 153 mg/dL 74-106 [facility] Comment on above: Fasting Glucose resu lt greater than or equal to 126 mg/dL suggests DIABETES MELLITUS per A.D.A. criteria. Hemoglobin (Bld) [Mass/Vol] 15.1 g/dL 12.0-15.0 [facility] Monocytes/100 WBC (Bld) 10.0 % 0-10 [facility] Neutrophils (Bld) [#/Vol] 7.0 10*3/uL 2.0-7.7 [facility] Neutrophils/100 WBC (Bld) 69.7 % 47-70 [facility] Potassium [Moles/Vol] 3.3 mmol/L 3.5-5.1 [facility] Protein [Mass/Vol] 7.2 g/dL 6.4-8.2 [facility] Sodium [Moles/Vol] 133 mmol/L 136-145 [facility] WBC (Bld) [#/Vol] 10.1 10*3/uL 4.4-11.0 [facility] Determination of erythrocyte mean corpuscular volume (MCV)Ordered By: Zane Sainz on 06-22-2023 MCV (RBC) [Entitic vol] 84.1 fL 81-99 [facility] Erythrocyte distribution wid th ratioOrdered By: Zane Sainz on 06-22-2023 Erythrocyte distribution width (RBC) [Ratio] 13.1 % 11.6-14.6 [facility] Erythrocyte distribution wid th standard deviationOrdered By: Zane Sainz on 06-22-2023 Erythrocyte distribution width (RBC) [Entitic vol] 40.3 fL 35.1-43.9 [facility] Hematocrit Auto (Bld) [Volum e fraction]Ordered By: Zane Sainz on 06-22-2023 Hematocrit (Bld) [Volume fraction] 46.4 % 37-47 [facility] Immature granulocytes/100 WB C Auto (Bld)Ordered By: Zane Sainz on 06-22-2023 Immature granulocytes/100 WBC (Bld) 0.500 % 0.0-0.9 [facility] Comment on above: IG% - Immature Granu locytes (promyelocytes, myelocytes and metamyelocytes) > 1% indicates that a LEFT SHIFT is Present. Laboratory - Chemistry and C hemistry - challengeOrdered By: Zane Sainz on 06-22-2023 Albumin/Globulin [Mass ratio] 0.7 {ratio} 0.9-2.4 [facility] ALP [Catalytic activity/Vol] 76 U/L 45-117 [facility] ALT [Catalytic activity/Vol] 13 U/L 13-56 [facility] CO2 [Moles/Vol] 28.0 mmol/L 21.0-32.0 [facility] Globulin (S) [Mass/Vol] 4.2 g/dL 2.2-4.2 [facility] Lipase [Catalytic activity/Vol] 15 U/L 13-75 [facility] Comment on above: Please note:LIPASE r evised reference range effective 22. New Lipase methodology. Expected to produce lower values than the previous assay method. NEW Reference Range: 13 - 75 U/L Urea nitrogen/Creatinine [Mass ratio] 33.0 mg/mg -20 [facility] - Hematology and Cell countsOrdered By: Zane Sainz on 06-22-2023 MCH (RBC) [Entitic mass] 27.4 pg 27.0-32.0 [facility] MCHC (RBC) [Mass/Vol] 32.5 g/dL 32-36 [facility] Nucleated RBC/100 WBC (Bld) [Ratio] 0 % 0-5 [facility] Platelet mean volume (Bld) [Entitic vol] 11.2 fL 6.2-12.0 [facility] Platelets (Bld) [#/Vol] 176 10*3/uL 150-450 [facility] No Panel InformationOrdered By: Zane Sainz on 06-22-2023 Estimated Creatinine Clearance Calc 81.58 ml/min [facility] Estimated GFR (MDRD) Amer 74 mL/min >60 [facility] Comment on above: GFR Calc Estimated GFR (MDRD) Non-Af Amer 61 mL/min >60 [facility] Comment on above: Non- GFR Calc RBC Auto (Bld) [#/Vol]Ordere d By: Zane Sainz on 06-22-2023 RBC (Bld) [#/Vol] 5.52 10*6/uL 4.2-5.4 [facility] Serum or plasma calcium daiana urement (mass/volume)Ordered By: Zane Sainz on 06-22-2023 Calcium [Mass/Vol] 8.8 mg/dL 8.5-10.1 [facility] Serum or plasma creatinine m easurement (mass/volume)Ordered By: Zane Sainz on 06-22-2023 Creatinine [Mass/Vol] 1.03 mg/dL 0.55-1.02 [facility] Comment on above: The validity of the calculated GFR & GFRAA in patients over 70 years has not been determined. Clinical correlation is essential. Serum or plasma urea nitroge n measurement (mass/volume)Ordered By: Zane Sainz on 06-22-2023 Urea nitrogen [Mass/Vol] 34 mg/dL 7-18 [facility] Thin prep Papanicolaou smear with manual screeningOrdered By: Zane Sainz on 06-22-2023 Thin prep Papanicolaou smear with manual screening 3.0 g/dL 3.2-5.0 [facility] Thin prep Papanicolaou smear with manual screening 8 U/L 15-37 [facility] Thin prep Papanicolaou smear with manual screening 5 5-15 [facility] ANKLE COMPLETE RTon 03-28-19 24 ANKLE COMPLETE RT [address] [address] Patient: TATYANA SPENCE Phone#: : 1975 Age: 47 Gender: F Pt. Type: ER Account: [id number] Location: 05 Ordering: MAU MALDONADO Exam Date: 03/28/202323:11 Family Phys: LOVE LIZARRAGAMARNIE Charge Code: [id number] Physician: [place] Order #: [id number] Dose#: PROCEDURE: X-RAY ANKLE COMPLETE RT MIN 3 VIEWS COMPARISON: [facility], XR, ANKLE COMPLETE RT, 12/20/2013, 22:41. INDICATIONS: Trauma. FINDINGS: BONES: Normal. No significant arthropathy or acute abnormality. SOFT TISSUES: Circumferential soft tissue swelling is present, greater laterally. EFFUSION: None visible. OTHER: Negative. CONCLUSION: 1. There is no evidence of acute fracture. 2. Circumferential soft tissue swelling is present. Dictated by: Toya Sanchez MD on 03/29/2023 at 8:42 Approved by: Toya Sanchez MD on 03/29/2023 at 8:43 Normal [facility] FOOT COMPLETE RTon 4 FOOT COMPLETE RT [address] [address] Patient: TATYANA SPENCE Phone#: : 1975 Age: 47 Gender: F Pt. Type: ER Account: [id number] Location: 052 Ordering: MAU MALDONADO Exam Date: 03/28/2023/23:13 Family Phys: LOVE WHITNEY Charge Code: [id number] Physician: [place] Order #: [id number] Dose#: PROCEDURE: X-RAY FOOT RT COMPLETE MIN 3 VIEWS COMPARISON: [facility], XR, FOOT RT COMPLETE, 11/23/2014, 16:38. INDICATIONS: Trauma. FINDINGS: BONES: No significant arthropathy or acute abnormality. 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 There is an os naviculare. SOFT TISSUES: Soft tissue swelling is present at the ankle. EFFUSION: None visible. OTHER: Negative. CONCLUSION: 1. There is no evidence of acute bone abnormality. Dictated by: Toya Sanchez MD on 03/29/2023 at 8:43 Approved by: Toya Sanchez MD on 03/29/2023 at 8:45 [facility] 12-04-2022 CNPN Telephone (OBGDOV) TATYANA SPENCE ([id number]) 1975 F Date Time Provider Department 12/04/22 RAY HART OBGDOV During your visit today, we recorded the following information about you: Ray Hart, [employer]PERATOR.[facility] 12/04/2022 4:24 PM Signed Opened chart in error. Allergies As of Date: 12/04/2022 (Not on File) Date Reviewed: Never Reviewed Problem List As Of Date: 12/04/2022 (None) Encounter Status:Closed by RAY HART on 12/04/22 [facility] .Auto Diffon 09-10-2018 Ammonia (P) [Mass/Vol] 0.90 10 3/mcL Normal 0.15-1.00 [facility] ([place]) Comment on above: Performed By: #### C MARIOLA ROMERO, CHUCHO #### [place] [address] #### BMP, GFR #### [address] [address] Basophils (Bld) [#/Vol] 0.00 10 3/mcL Normal 0.00-0.19 [facility] ([place]) Comment on above: Performed By: #### C BC, ADIFF, ANEU #### [address] [address] #### BMP, GFR #### [address] [address] Basophils/100 WBC (Bld) 0.1 % Normal 0.0-2.5 A [facility] ([place]) Comment on above: Performed By: #### C BC, ADIFF, ANEU #### [place] [address] #### BMP, GFR #### [address] [address] Eosinophils (Bld) [#/Vol] 0.00 10 3/mcL Normal 0.00-0.40 [facility] ([place]) Comment on above: Performed By: #### C BC, ADIFF, ANEU #### [place] [address] #### BMP, GFR #### [address] [address] Eosinophils/100 WBC (Bld) 0.0 % Normal 0.0-7.0 [facility] ([place]) Comment on above: Performed By: #### C BC, ADIFF, ANEU #### [place] [address] #### BMP, GFR #### [address] [address] Lymphocytes (Bld) [#/Vol] 0.90 10 3/mcL Normal 0.77-3.85 [facility] ([place]) Comment on above: Performed By: #### C BC, ADIFF, ANEU #### [place] [address] #### BMP, GFR #### [address] [address] Lymphocytes/100 WBC (Bld) 4.7 % Low 10.0-50.0 [facility] ([place]) Comment on above: Performed By: #### C BC, ADIFF, ANEU #### [address] [address] #### BMP, GFR #### [address] [address] Monocytes/100 WBC (Bld) 4.6 % Normal 1.7-13.0 A [facility] ([place]) Comment on above: Performed By: #### C BC, ADIFF, ANEU #### [address] [address] #### BMP, GFR #### [address] [address] Neutrophils/100 WBC (Bld) 90.6 % High 37.0-80.0 [facility] ([place]) Comment on above: Performed By: #### C BC, ADIFF, ANEU #### [address] [address] #### BMP, GFR #### [address] [address] .GFRon 09-10-2018 GFR 64 ml/min/1.73sqm Normal [facility] ([place]) Comment on above: Result Comment: GFR Population mean for , Non- Americans Ages 20-29 = 116 mL/min/1.73 sq.m. Ages 30-39 = 107 mL/min/1.73 sq.m. Ages 40-49 = 99 mL/min/1.73 sq.m. Ages 50-59 = 93 mL/min/1.73 sq.m. Ages 60-69 = 85 mL/min/1.73 sq.m. Ages 70+ = 75 mL/min/1.73 sq.m. Chronic Kidney Disease: Less than 60 mL/min/1.73 square meters End Stage Renal Disease: Less than 15 mL/min/1.73 square meters Performed By: #### C BC, ADIFF, ANEU #### [place] [address] [address] GFR Non- 53 ml/min/1.73sqm Normal [facility] ([place]) Comment on above: Result Comment: GFR Population mean for , Non- Americans Ages 20-29 = 116 mL/min/1.73 sq.m. Ages 30-39 = 107 mL/min/1.73 sq.m. Ages 40-49 = 99 mL/min/1.73 sq.m. Ages 50-59 = 93 mL/min/1.73 sq.m. Ages 60-69 = 85 mL/min/1.73 sq.m. Ages 70+ = 75 mL/min/1.73 sq.m. Chronic Kidney Disease: Less than 60 mL/min/1.73 square meters End Stage Renal Disease: Less than 15 mL/min/1.73 square meters Performed By: #### C BCMARIOLA, ANEU #### [address] [address] .NEUABSon 09-10-2018 Neutrophils (Bld) [#/Vol] 17.00 10 3/mcL High 2.85-6.16 [facility] ([place]) Comment on above: Performed By: #### C BCMARIOLA, ANEU #### [address] [address] #### BMP, GFR #### [place] [address] BMPon 09-10-2018 Calcium [Mass/Vol] 8.7 mg/dL Normal 8.4-10.2 [facility] ([place]) Comment on above: Performed By: #### C BCGLORIAIFF, ANEU #### [address] [address] Chloride [Moles/Vol] 102 mmol/L Normal 98-107 [facility] ([place]) Comment on above: Performed By: #### C BCGLORIAIFF, ANEU #### [address] [address] CO2 [Moles/Vol] 28 mmol/L Normal 22-29 [facility] ([place]) Comment on above: Performed By: #### C BCGLORIAIFF, ANEU #### [address] [address] Creatinine [Mass/Vol] 1.14 mg/dL High 0.55-1.02 [facility] ([place]) Comment on above: Performed By: #### C BC, ADIFF, ANEU #### [address] [address] Electrolyte Balance 8.0 mEq/L Normal [facility] ([place]) Comment on above: Performed By: #### C MARIOLA ROMERO, ANEU #### [place] [address] [address] Glucose [Mass/Vol] 219 mg/dL High 70-105 [facility] ([place]) Comment on above: Performed By: #### C MARIOLA ROMERO, ANEU #### [address] [address] Potassium [Moles/Vol] 4.0 mmol/L Normal 3.5-5.1 [facility] ([place]) Comment on above: Performed By: #### C MARIOLA ROMERO, ANEU #### [address] [address] Sodium [Moles/Vol] 138 mmol/L Normal 136-145 [facility] ([place]) Comment on above: Performed By: #### C MARIOLA ROMERO, ANEU #### [address] [address] Urea nitrogen [Mass/Vol] 14 mg/dL Normal 7-18 [facility] ([place]) Comment on above: Performed By: #### C NICK, MARIOLA, ANEU #### [address] [address] Urea nitrogen/Creatinine [Mass ratio] 12 ratio Normal 7-27 [facility] ([place]) Comment on above: Performed By: #### C BC, ADIFF, ANEU #### [address] [address] CBCon 09-10-2018 Erythrocyte distribution width (RBC) [Ratio] 14.0 % Normal 11.5-14.5 [facility] ([place]) Comment on above: Performed By: #### C BC, ADIFF, ANEU #### [place] [address] #### BMP, GFR #### [address] [address] Hematocrit (Bld) [Volume fraction] 40.1 % Normal 37.0-47.0 [facility] ([place]) Comment on above: Performed By: #### C BC, ADIFF, ANEU #### [place] [address] #### BMP, GFR #### [place] [address] Hemoglobin (Bld) [Mass/Vol] 13.4 G/dL Normal 12.0-16.0 [facility] ([place]) Comment on above: Performed By: #### C BC, ADIFF, ANEU #### [place] [address] #### BMP, GFR #### [address] [address] MCH (RBC) [Entitic mass] 28.7 pg Normal 27.0-31.2 [facility] ([place]) Comment on above: Performed By: #### C BC, ADIFF, ANEU #### [place] [address] #### BMP, GFR #### [place] [address] MCHC (RBC) [Mass/Vol] 33.4 G/dL Normal 33.0-37.0 [facility] ([place]) Comment on above: Performed By: #### C BC, ADIFF, ANEU #### [place] [address] #### BMP, GFR #### [place] [id number] MCV (RBC) [Entitic vol] 86.0 fL Normal 80.0-94.0 A [facility] ([place]) Comment on above: Performed By: #### C BC, ADIFF, ANEU #### [address] [address] #### BMP, GFR #### [address] [address] Platelet mean volume (Bld) [Entitic vol] 9.8 fL Normal 7.4-10.4 [facility] ([place]) Comment on above: Performed By: #### C BC, ADIFF, ANEU #### [place] [address] #### BMP, GFR #### [address] [address] Platelets (Bld) [#/Vol] 216 10 3/mcL Normal 130-400 [facility] ([place]) Comment on above: Performed By: #### C BC, ADIFF, ANEU #### [place] [address] #### BMP, GFR #### [address] [address] RBC (Bld) [#/Vol] 4.66 10 6/mcL Normal 4.20-5.40 [facility] ([place]) Comment on above: Performed By: #### C BC, ADIFF, ANEU #### [place] [address] #### BMP, GFR #### [address] [address] WBC (Bld) [#/Vol] 18.80 10 3/mcL High 4.60-10.80 [facility] ([place]) Comment on above: Performed By: #### C BC, ADIFF, ANEU #### [place] [address] #### BMP, GFR #### [address] [address] XR KNEE 1 OR 2 VIEWS RIGHTon 09-09-2018 XR KNEE 1 OR 2 VIEWS RIGHT ORIGINAL XR KNEE RIGHT portable AP and crosstable lateral 2 views CLINICAL STATEMENT: Status Post Arthroplasty , knee replacement surgery, check prosthesis alignment COMPARISON: None FINDINGS: There is knee replacement with a total knee prosthesis that show satisfactory alignment. Expected postoperative changes in the adjacent soft tissues. IMPRESSION: Expected postoperative changes from the replacement surgery. Interpreted By: Kraig Joseph MD Preliminary Report By: Kraig Joseph MD Electronically Signed By: Kraig Joseph MD Dictated Date: 09/09/2018 3:23:51 PM Prelim Date: 09/09/2018 3:23:51 PM Sign Date: 09/09/2018 3:24:23 PM Normal [facility] ([place]) .Auto Diffon 08-29-2018 Ammonia (P) [Mass/Vol] 0.60 10 3/mcL Normal 0.15-1.00 [facility] ([place]) Comment on above: Performed By: #### C MARIOLA ROMERO ANEU #### [place] [address] [address] Basophils (Bld) [#/Vol] 0.00 10 3/mcL Normal 0.00-0.19 [facility] ([place]) Comment on above: Performed By: #### MARIOLA MENDENHALL ANEU #### [address] [address] Basophils/100 WBC (Bld) 0.3 % Normal 0.0-2.5 A [facility] ([place]) Comment on above: Performed By: #### MARIOLA MENDENHALL ANEU #### [place] [address] [address] Eosinophils (Bld) [#/Vol] 0.10 10 3/mcL Normal 0.00-0.40 [facility] ([place]) Comment on above: Performed By: #### MARIOLA MENDENHALL ANEU #### [address] [address] Eosinophils/100 WBC (Bld) 1.4 % Normal 0.0-7.0 [facility] ([place]) Comment on above: Performed By: #### MARIOLA MENDENHALL ANEU #### [address] [address] Lymphocytes (Bld) [#/Vol] 2.00 10 3/mcL Normal 0.77-3.85 [facility] ([place]) Comment on above: Performed By: #### C BC, ADIFF, ANEU #### [place] [address] [place], [place] [address] Lymphocytes/100 WBC (Bld) 19.4 % Normal 10.0-50.0 [facility] ([place]) Comment on above: Performed By: #### C BC, ADIFF, ANEU #### [place] [address] [place], [place] [address] Monocytes/100 WBC (Bld) 5.7 % Normal 1.7-13.0 A [facility] ([place]) Comment on above: Performed By: #### C BC, ADIFF, ANEU #### [place] [address] [address] Neutrophils/100 WBC (Bld) 73.2 % Normal 37.0-80.0 [facility] ([place]) Comment on above: Performed By: #### C BC, ADIFF, ANEU #### [place] [address] [place], [place] [address] .GFRon 08-29-2018 GFR 87 ml/min/1.73sqm Normal [facility] ([place]) Comment on above: Result Comment: GFR Population mean for , Non- Americans Ages 20-29 = 116 mL/min/1.73 sq.m. Ages 30-39 = 107 mL/min/1.73 sq.m. Ages 40-49 = 99 mL/min/1.73 sq.m. Ages 50-59 = 93 mL/min/1.73 sq.m. Ages 60-69 = 85 mL/min/1.73 sq.m. Ages 70+ = 75 mL/min/1.73 sq.m. Chronic Kidney Disease: Less than 60 mL/min/1.73 square meters End Stage Renal Disease: Less than 15 mL/min/1.73 square meters Performed By: #### B MP, GFR #### [address] [address] GFR Non- 72 ml/min/1.73sqm Normal [facility] ([place]) Comment on above: Result Comment: GFR Population mean for , Non- Americans Ages 20-29 = 116 mL/min/1.73 sq.m. Ages 30-39 = 107 mL/min/1.73 sq.m. Ages 40-49 = 99 mL/min/1.73 sq.m. Ages 50-59 = 93 mL/min/1.73 sq.m. Ages 60-69 = 85 mL/min/1.73 sq.m. Ages 70+ = 75 mL/min/1.73 sq.m. Chronic Kidney Disease: Less than 60 mL/min/1.73 square meters End Stage Renal Disease: Less than 15 mL/min/1.73 square meters Performed By: #### B MP, GFR #### [address] [address] .NEUABSon 08-29-2018 Neutrophils (Bld) [#/Vol] 7.70 10 3/mcL High 2.85-6.16 [facility] ([place]) Comment on above: Performed By: #### C BC, MARIOLA, ANEU #### [place] [address] [address] BMPon 08-29-2018 Calcium [Mass/Vol] 8.9 mg/dL Normal 8.4-10.2 [facility] ([place]) Comment on above: Performed By: #### B MP, GFR #### [address] [address] Chloride [Moles/Vol] 100 mmol/L Normal 98-107 [facility] ([place]) Comment on above: Performed By: #### B MP, GFR #### [address] [address] CO2 [Moles/Vol] 30 mmol/L High 22-29 [facility] ([place]) Comment on above: Performed By: #### B MP, GFR #### [address] [address] Creatinine [Mass/Vol] 0.87 mg/dL Normal 0.55-1.02 [facility] ([place]) Comment on above: Performed By: #### B MP, GFR #### [address] [address] Electrolyte Balance 9.0 mEq/L Normal [facility] ([place]) Comment on above: Performed By: #### B MP, GFR #### [address] [address] Glucose [Mass/Vol] 101 mg/dL Normal 70-105 [facility] ([place]) Comment on above: Performed By: #### B MP, GFR #### [address] [address] Potassium [Moles/Vol] 4.0 mmol/L Normal 3.5-5.1 [facility] ([place]) Comment on above: Performed By: #### B MP, GFR #### [address] [address] Sodium [Moles/Vol] 139 mmol/L Normal 136-145 [facility] ([place]) Comment on above: Performed By: #### B MP, GFR #### [address] [address] Urea nitrogen [Mass/Vol] 12 mg/dL Normal 7-18 [facility] ([place]) Comment on above: Performed By: #### B MP, GFR #### [address] [address] Urea nitrogen/Creatinine [Mass ratio] 14 ratio Normal 7-27 [facility] ([place]) Comment on above: Performed By: #### B MP, GFR #### [address] [address] CBCon 08-29-2018 Erythrocyte distribution width (RBC) [Ratio] 14.5 % Normal 11.5-14.5 [facility] ([place]) Comment on above: Performed By: #### MARIOLA MENDENHALL, ANEU #### [place] [address] [address] Hematocrit (Bld) [Volume fraction] 44.5 % Normal 37.0-47.0 [facility] ([place]) Comment on above: Performed By: #### MARIOLA MENDENHALL, ANEU #### [place] [address] [place], [place] [address] Hemoglobin (Bld) [Mass/Vol] 14.9 G/dL Normal 12.0-16.0 [facility] ([place]) Comment on above: Performed By: #### MARIOLA MENDENHALL, ANEU #### [address] [address] MCH (RBC) [Entitic mass] 28.6 pg Normal 27.0-31.2 [facility] ([place]) Comment on above: Performed By: #### MARIOLA MENDENHALL, ANEU #### [address] [address] MCHC (RBC) [Mass/Vol] 33.5 G/dL Normal 33.0-37.0 [facility] ([place]) Comment on above: Performed By: #### MARIOLA MENDENHALL, ANEU #### [address] [address] MCV (RBC) [Entitic vol] 85.5 fL Normal 80.0-94.0 [facility] ([place]) Comment on above: Performed By: #### MARIOLA MENDENHALL, ANEU #### [address] [address] Platelet mean volume (Bld) [Entitic vol] 9.3 fL Normal 7.4-10.4 [facility] ([place]) Comment on above: Performed By: #### MARIOLA MENDENHALL, ANEU #### [address] [address] Platelets (Bld) [#/Vol] 247 10 3/mcL Normal 130-400 [facility] ([place]) Comment on above: Performed By: #### MARIOLA MENDENHALL, ANEU #### [address] [address] RBC (Bld) [#/Vol] 5.20 10 6/mcL Normal 4.20-5.40 [facility] ([place]) Comment on above: Performed By: #### MARIOLA MENDENHALL, ANEU #### [address] [address] WBC (Bld) [#/Vol] 10.50 10 3/mcL Normal 4.60-10.80 [facility] ([place]) Comment on above: Performed By: #### C BCMARIOLA, ANEU #### [address] [address] [address] KNEE W/O CONTRAST RIGHTon 08-29-2018 CT KNEE W/O CONTRAST RIGHT ORIGINAL CT KNEE W/O CONTRAST RIGHT This exam was performed according to our departmental dose optimization program, and includes the following measures where applicable: automated exposure control, adjustment of the mAs and/or kVp according to patient size and/or exam, and an iterative reconstruction algorithm. CLINICAL STATEMENT: UNILATERAL PRIMARY OSTEOARTHRITIS OF RIGHT KNEE COMPARISON: None FINDINGS: Axial images were acquired at the RIGHT hip, knee, and ankle. Reformatted images of the knee were provided. There is mild narrowing of the medial tibiofemoral compartment. Tricompartmental osteophyte formation is demonstrated. There is generalized sclerosis involving a majority of the patella. There is no acute fracture. There is no acute abnormality of the RIGHT hip or RIGHT ankle. IMPRESSION: Tricompartmental osteoarthritis RIGHT knee. Sclerosis of the patella, of uncertain etiology. Interpreted By: Sara Bowden MD Preliminary Report By: Sara Bowden MD Electronically Signed By: Sara Bowden MD Dictated Date: 08/29/2018 2:17:56 PM Prelim Date: 08/29/2018 2:17:56 PM Sign Date: 08/29/2018 2:33:06 PM Normal [facility] ([place]) LUIS by IFAon 05-26-2018 LUIS Pattern ANANOT Normal [facility] Comment on above: Performed By: #### R F, HBA1C #### [facility] Routine Lab [address] [place] [address] #### ANAIFS, CCP #### [facility] Germin8 Immuno Assay [address] [place] [address] LUIS Titer Normal Negative [facility] Comment on above: Result Comment: Nega tive Normal range : negatie at <1:80 serum dilution. Performed By: #### R F, HBA1C #### [facility] Routine Lab [address] [place] [address] #### ANAIFS, CCP #### [facility] Immuno Assay [address] [place] [address] Nuclear Ab IF titer (S) Negative Normal Negative [facility] Comment on above: Performed By: #### R F, HBA1C #### [facility] Routine Lab [address] [place] [address] #### ANAIFS, CCP #### [facility] Immuno Assay [address] [place] [address] CCP Antibody, IgGon 05-27-19 19 CCP Antibody, IgG <15 Normal <20 [facility] Comment on above: Performed By: #### R F, HBA1C #### [facility] Routine Lab [address] [place] [phone] #### ANAIFS, CCP #### [facility] Immuno Assay [address] [place] [address] Hemoglobin A1con 05-24-2018 Hemoglobin A1c/Hemoglobin.total mass fraction (Bld) 5.8 % High 4.3-5.6 [facility] Comment on above: Performed By: #### R F, HBA1C #### [facility] Routine Lab [address] [place] [phone] #### ANAIFS, CCP #### [facility] Immuno Assay [address] [place] [id number] Hemoglobin A1c/Hemoglobin.total mass fraction (Bld) 120 mg/dL Normal [facility] Comment on above: Performed By: #### R F, HBA1C #### [facility] Routine Lab [address] [place] [address] #### ANAIFS, CCP #### [facility] Immuno Assay [address] [place] [address] Rheumatoid Factoron 05-25-19 19 Rheumatoid Factor <10 Normal <16 [facility] Comment on above: Performed By: #### R F, HBA1C #### [facility] Routine Lab [address] [place], [place] [address] #### LUISIFS, CCP #### [facility] Immuno Assay [address] [place], [place] [address] Vital Signs Date Time Vital Sign Value Performing Clinician Adrianna randall 06-23-2023 03:01-0400 Body temperature 98.1 [degF] [facility] 06-23-2023 03:01-0400 Diastolic blood pressure 98 mm[Hg] [facility] 06-23-2023 03:01-0400 Heart rate 95 /min [facility] 06-23-2023 03:01-0400 Respiratory rate 16 /min [facility] 06-23-2023 03:01-0400 SaO2% (BldA) [Mass fraction] 97 % [facility] 06-23-2023 03:01-0400 Systolic blood pressure 156 mm[Hg] [facility] 06-22-2023 23:00-0400 Body height 165.1 cm [facility] 06-22-2023 23:00-0400 Body mass index (BMI) [Ratio] 38 kg/m2 [facility] 06-22-2023 23:00-0400 Body weight 103.8 kg [facility] Encounters Encounter Date Encounter Type Care Provider Facility Start: 10-13-2023 ambulatory LOVE KELLER [facility] Start: 10-13-2023 End: 10-13-2023 Emergency department patient visit LOVE KELLER [facility] Start: 06-23-2023 End: 06-23-2023 Emergency department patient visit Zane Sainz Facility:[facility] Start: 06-22-2023 End: 06-23-2023 Emergency department patient visit [facility] Work Phone: Start: 03-28-2023 End: 03-29-2023 Emergency department patient visit MAU LAU [facility] Start: 12-04-2022 Telephone encounter Ray Coto APRN.CNP Work Phone: [facility] Obstetrics and Gynecology Procedures Date Procedure Procedure Detail Performing Clinician Start: 06-23-2023 CT of abdomen and pe lvis without contrast Plan of Treatment Date Care Activity Detail Author Start: 06-23-2023 [facility] Patient Education Abdominal Pain [facility] Work Phone: Patient referral [facility] Work Phone: Payers Date Payer Category Payer Self-pay [id number] 2015 Unknown [id number] 1975 Unknown [id number] 1975 Unknown [id number] Unknown [id number] Unknown [id number] Social History Date Type Detail Facility Start: 06-22-2023 Tobacco smoking status NHIS Tobacco smoking consumption unknown [facility] Work Phone: Start: 1975 Sex Assigned At Not on file [facility] Gender identity Not on file [facility] Start: 1975 Sex Assigned At Female [facility] Note 12-04-2022 Telephone Encounter - Ray Hart APRN.CNP - 12/04/2022 4:24 PM EDT Note Date & Type Note Facility 12-04-2022 Miscellaneous Notes Formattin g of this note might be different from the original. Opened chart in error. documented in this encounter [facility] Evaluation note Note Date & Type Note Facility Evaluation note No assessment information availa ble [facility] Work Phone: Hospital Discharge instructions Note Date & Type Note Facility Hospital Discharge instructions Additional Instructions Your CT scan with no obstruction. There was thickening of your small bowels, recommended CT angiograms. You declined this in the ED. However your pain is not out of proportion to worry about any sick ischemic bowel. Monitor symptoms take medications as prescribed. If symptoms worsen, return to ED for evaluation. Otherwise follow-up with your doctor. [facility] Work Phone: Summary Purpose Family History No Family History Records FoundNo Family History Records FoundNo Family History Records FoundNo Family History Records FoundNo Family History Records Found Advance Directives No Advanced Directives Records Found Advance Directive Response Recorded Date/ Time Advance Directives No July 11 11:16am Living Will No June 22, 2023 11:03pm Power of Aluminum Pourer No June 21 11:03pm Chief Complaint and Reason for Visit Chief Complaint ABD PAIN Additional Source Comments INFORMATION SOURCE (unrecogn ized section and content) DATE CREATED AUTHOR 05/28/2018 [facility] DATE CREATED AUTHOR AUTHOR'S ORGANIZ ATION 10/28/2018 [facility] ([place]) DATE CREATED AUTHOR AUTHOR'S ORGANIZ ATION 12/08/2022 [facility] DATE CREATED AUTHOR AUTHOR'S ORGANIZ ATION 06/30/2023 [facility] DATE CREATED AUTHOR AUTHOR'S ORGANIZ ATION 10/15/2023 [facility] Source Comments (unrecognize d section and content) In the event this informatio n is protected by the Federal Confidentiality of Alcohol and Drug Abuse Patient Records regulations: The Federal rules restrict any use of the information to criminally investigate or prosecute any alcohol or drug abuse patient.[facility] Care Teams (unrecognized sec tion and content) Team Status: Active Member Role Status Dates Out of Town Doctor Family Provider Active Dr. Love Whitney MD Primary Care Provider Active Team Status: Inactive Member Role Status Dates Dr. Zane Sainz DO Emergency Provider Active Dr. Love Whitney MD Primary Care Provider Active Goals (unrecognized section and content) Goals may be documented in a n alternate section FOR RECORDS PERTAINING TO PATIENTS WHO ARE OR HAVE BEEN ENROLLED IN A CHEMICAL DEPENDENCY/SUBSTANCEABUSE PROGRAM, SOME INFORMATION MAY BE OMITTED. This clinical summary was aggregated from multiple sources. Caution should be exercised in using it in the provision of clinical care. This summary normalizes information from multiple sources, and as a consequence, information in this document may materially change the coding, format and clinical context of patient data. In addition, data may be omitted in some cases. CLINICAL DECISIONS SHOULD BE BASED ON THE PRIMARY CLINICAL RECORDS. [employer] [facility]. provides no warranty or guarantee of the accuracy or completeness of information in this document.
--- NOTE | 2025-02-21 09:40 | ED.VIS.DYS ---
HPI History of Present Illness Chief Complaint: Shortness of Breath Narrative Narrative: Chief complaint and HPI: 49-year-old female with past medical history of COPD still a tobacco abuser, HTN presents for evaluation of shortness of breath. Patient states she recently had a COPD exacerbation in which she was hospitalized at [facility]. She states that she had a 5-day admission in which she was treated with steroids. States she finished the course on discharge. Patient states she has remained short of breath, worse with exertion and lying down. She states she is coughing up white sputum. Denies any significant wheezing. States she has been using her inhalers. States that she has aerosols at home. Patient states when she coughs only she has pain in the left lateral ribs and is concerned maybe she broke a rib from coughing. Patient states that she has had swelling and her left lower extremity for several weeks. Prior to her hospital admission. She does not believe that they performed a ultrasound. States she was told that she has some congestion failure. She denies any fever, chills, chest pain, abdominal pain, nausea, vomiting. Review of systems: See HPI Medications: As listed on the chart Allergies: As listed on the chart PFSH: Per chart Vital signs: As listed on the chart. Reviewed. Physical exam: Gen: A&O x3, NAD Head: Normocephalic, atraumatic Eyes: No sclera icterus, conjunctiva clear ENT: Moist mucous membranes Neck: Trachea midline, No JVD CV: RRR, no murmurs, mildly tender to palpation of the left lateral ribs -palpation recreates her pain that she experiences when she coughs-no overlying skin changes Resp: Lungs CTA BL, no w/r/c GI: Abd soft, non-distended, non-tender, no r/r/g Musc: Full ROM, no deformity, left lower extremity +1 pitting edema, right lower extremity with no significant edema, DP/PT pulses +2 bilaterally Skin: Warm, dry Neuro: Alert, oriented, grossly intact, sensation intact Psych: Cooperative, appropriate mood and affect [facility] Medical History (Updated 02/21/25 @ 09:19 by Veronica Brown) Diabetes Home Medications ?Medication ?Instructions ?Recorded ?Last Taken ?Type albuterol sulfate 90 mcg/actuation 2 puff inhalation Q6H PRN PRN 07/12/15 Unknown History aerosol inhaler (Ventolin HFA) Asthma albuterol sulfate 2.5 mg/3 mL 2.5 mg inhalation Q6H PRN PRN Sob 11/04/16 Unknown History (0.083 %) solution for nebulization &/Or Wheezing ibuprofen 800 mg tablet 800 mg PO Q8H PRN PRN Pain #20 tabs 11/04/16 Unknown Rx ipratropium bromide 17 1 puff inhalation PRN PRN Sob &/Or 11/04/16 Unknown History mcg/actuation HFA aerosol inhaler Wheezing (Atrovent HFA) ondansetron 4 mg disintegrating 4 mg PO Q8H PRN PRN Nausea #10 tabs 06/23/23 Unknown Rx tablet budesonide-formoterol HFA 80 1 puff inhalation DAILY 02/21/25 Unknown History mcg-4.5 mcg/actuation aerosol inhaler (Symbicort) ipratropium 0.5 mg-albuterol 3 mg 1 continuous nebulization 4X/DAY 02/21/25 Unknown History (2.5 mg base)/3 mL nebulization PRN PRN shortness of breath soln losartan 100 1 tab PO DAILY 02/21/25 Unknown History mg-hydrochlorothiazide 12.5 mg tablet metformin 500 mg tablet 500 mg PO BID 02/21/25 Unknown History Allergy/AdvReac Type Severity Reaction Status Date / Time morphine Allergy Hives Verified 02/21/25 09:13 Surgical History (Updated 02/21/25 @ 09:20 by Veronica Brown) Hx of cholecystectomy Hx of hernia repair Social History Smoking Status: Light Smoker (<10/day) EXAM Physical Exam Const Vital Signs: 02/21/25 09:09 02/21/25 09:21 02/21/25 09:50 Temperature 98.9 F Temperature Source Oral Pulse Rate 95 Respiratory Rate 16 Respiratory Effort Normal Non-Labored Respiratory Depth Normal Respiratory Pattern Normal Blood Pressure 170/73 H Blood Pressure Mean 105 Pulse Ox 97 94 Oxygen Delivery Method Room Air Room Air Room Air 02/21/25 09:50 02/21/25 11:13 02/21/25 11:55 Temperature 98 F Temperature Source Pulse Rate 86 82 77 Respiratory Rate 22 H 18 22 H Respiratory Effort Respiratory Depth Respiratory Pattern Blood Pressure 151/75 H 143/77 H Blood Pressure Mean 100 99 Pulse Ox 95 95 Oxygen Delivery Method Room Air MDM MDM MDM Narrative Medical decision making narrative: 49-year-old female with past medical history of COPD still a tobacco abuser, HTN presents for evaluation of shortness of breath. Patient states she recently had a COPD exacerbation in which she was hospitalized at [facility]. She states that she had a 5-day admission in which she was treated with steroids. States she finished the course on discharge. Patient states she has remained short of breath, worse with exertion and lying down. She states she is coughing up white sputum. Denies any significant wheezing. States she has been using her inhalers. States that she has aerosols at home. Patient states when she coughs only she has pain in the left lateral ribs and is concerned maybe she broke a rib from coughing. Patient states that she has had swelling and her left lower extremity for several weeks. Prior to her hospital admission. She does not believe that they performed a ultrasound. Differential diagnosis includes but is not limited to viral illness, COPD exacerbation, bronchitis, chronic emphysema, CHF, pneumonia, pneumothorax, rib fracture/contusion, DVT. I do not have venous duplex ultrasound available today at our hospital therefore we will able to assess for a DVT in her left lower extremity. If patient discharges home we will provide this outpatient. Patient's lungs are clear to auscultation bilaterally without any significant wheezing. Will order DuoNeb for symptoms of shortness of breath. Respiratory workup ordered. CBC unremarkable. D-dimer elevated at 0.65. Cannot rule out PE. CTA chest ordered. Will give fluids for contrast load. BMP unremarkable except for hyperglycemia. Troponin unremarkable. BNP unremarkable. COVID, flu, RSV negative. CT of the chest shows probable right distal subsegmental PE. No central pulmonary embolism. Small foci of peripheral right lower lobe consolidation. Pulmonary infarct is not excluded. On reevaluation, patient's vitals have remained stable other than mild hypertension. She is not hypoxic. Will ambulate with pulse ox. Patient will be started on Eliquis for her PE. I suspect she likely probably has a DVT in that left lower extremity however unable to obtain venous duplex ultrasound. I discussed the patient with the hospitalist, Dr. Hall. Patient does warrant admission where he can get stat venous duplex ultrasound versus discharge outpatient. Plan was discussed with the patient. Patient would like to be admitted to the hospital to get venous duplex ultrasound and further monitoring. I did ambulate her on pulse ox in which she was 93%. Repeat troponin 15. Hospitalist accepted admission. EKG: Interpreted by me/EM physician: EKG shows normal sinus rhythm with nonspecific changes. Heart rate 84. Normal QTc. Diagnostic: Interpreted by me/EM physician: X-rays of the ribs were personally reviewed and interpreted by me, ED physician. No fracture or dislocation. Cardiomegaly. Radiology in agreement. Impression: 1. Distal right subsegmental PE 2. Possible pulmonary right lower lobe infarct 3. Left lower extremity edema, possible DVT 4. Mildly elevated troponin Lab Data Labs: Laboratory Results - last 24 hr 02/21/25 02/21/25 09:30 11:29 WBC 10.8 RBC 5.05 Hgb 14.1 Hct 45.0 MCV 89.1 MCH 27.9 MCHC 31.3 L RDW Std Deviation 43.0 RDW Coeff of Camila 13.2 Plt Count 231 MPV 11.4 Immature Gran % (Auto) 0.700 Neut % (Auto) 78.1 H Lymph % (Auto) 12.0 L [place] % (Auto) 6.9 Eos % (Auto) 1.8 Baso % (Auto) 0.5 Absolute Neuts (auto) 8.4 H Absolute Lymphs (auto) 1.30 Nucleated RBC % 0 D-Dimer Quant (PE/DVT) 0.65 H* Sodium 134 Potassium 4.1 Chloride 94 L Carbon Dioxide 27.1 Anion Gap 13 BUN 16 Creatinine 0.91 Estim Creat Clear Calc 99.72 Est GFR (MDRD) Non-Af 78 BUN/Creatinine Ratio 17.9 Glucose 336 H Calcium 8.9 Troponin T High Sens 10 Troponin T Hi Sens 2 Hr 15 H NT pro BNP II 41 Radiography Diagnostic Testing: Clinical Impression(s) from Imaging Studies Chest CTA 02/21/25 09:56 IMPRESSION: 1. Probable right distal subsegmental pulmonary emboli. No central pulmonary embolism. 2. Small focal peripheral right lower lobe consolidation. Pulmonary infarct is not excluded. Reading Location: [facility] 234 BEDS AT THE [facility] Ribs X-Ray 02/21/25 10:00 IMPRESSION: Cardiomegaly without definitive rib fracture. Pulmonary evaluation of the bases is limited. Reading Location: [facility] Discharge Plan Triage Chief Complaint: Shortness of Breath ED Provider: Xavier Zuniga Dx/Rx/DC Orders Prescriptions: No Action albuterol sulfate [Ventolin HFA] 1 INHALER inhaler 2 puff inhalation Q6H PRN PRN (Reason: Asthma) albuterol sulfate 2.5 MG/3 ML solution for nebulization 2.5 mg inhalation Q6H PRN PRN (Reason: Sob &/Or Wheezing) Atrovent HFA 12.9 GM inhaler 1 puff inhalation PRN PRN (Reason: Sob &/Or Wheezing) ibuprofen 800 MG tablet 800 mg PO Q8H PRN PRN (Reason: Pain) Qty: 20 0RF ondansetron [ondansetron] 4 mg tablet,disintegrating 4 mg PO Q8H PRN PRN (Reason: Nausea) Qty: 10 0RF budesonide-formoterol [Symbicort] 80-4.5 mcg/actuation HFA aerosol inhaler 1 puff INHALATION DAILY ipratropium-albuterol 0.5 mg-3 mg(2.5 mg base)/3 mL solution for nebulization 1 continuous nebulization 4X/DAY PRN PRN (Reason: shortness of breath) metformin 500 mg tablet 500 mg PO BID losartan-hydrochlorothiazide 100-12.5 mg tablet 1 tab PO DAILY Primary Care Provider: Shantel Whitney Referrals: Shantel Whitney MD [Primary Care Provider, Internal Medicine] Print Language: [place] Citizen
[2025-02-21 09:47] LABS: Hematocrit 45.0 % (37-47); Hemoglobin 14.1 g/dL (12.0-15.0); Immature Granulocytes Count 0.080 X10^3/uL (0.0-0.0); Mean Corp Hgb Conc 31.3 g/dL (32-36); Mean Corpuscular Volume 89.1 fL (81-99); Mean Platelet Vol. 11.4 fl (6.2-12.0); NRBC Flagged by Analyzer 0 % (0-5); Platelet Count 231 K/mm3 (150-450); RBC Distribution Width CV 13.2 % (11.6-14.6); RBC Distribution Width SD 43.0 fl (35.1-43.9); Red Blood Count 5.05 M/mm3 (4.2-5.4); White Blood Count 10.8 K/mm3 (4.4-11.0)
[2025-02-21 09:56] LABS: D-Dimer Quantitative (DVT/PE) 0.65 FEU/ug/m (0.27-0.49)
--- NOTE | 2025-02-21 09:56 | CT_ITS ---
PROCEDURE: CTA CHEST W/WO CONTRAST 02/21/2025 REASON FOR EXAM: Clinical concern for pulmonary embolism TECHNIQUE: Procedure Code: [id number] Modality: CT Procedure: CTA CHEST W/WO CONTRAST Multidetector CT angiography of the chest with intravenous contrast including multiplanar and post-processed maximum intensity projection (MIP) were generated and interpreted. CONTRAST: Isovue 370 VOLUME: 98 mL One or more dose reduction techniques were used (e.g., Automated exposure control, adjustment of the mA and/or kV according to patient size, use of iterative reconstruction technique). RADIATION DOSE SUMMARY: DLP: 564.79 mGycm COMPARISON: None available. FINDINGS: Opacification of the pulmonary arterial tree is adequate Pulmonary artery and thoracic vessels: There are no filling defects in the central pulmonary arteries. There is a filling defect in the distal subsegmental pulmonary artery in the right lower lobe (series 2, image 112). The main pulmonary artery and thoracic aorta are normal in caliber. Pulmonary parenchyma: There is a small focal right lower lobe consolidation. Mild dependent atelectasis. Left perifissural density which is nonspecific may reflect atelectasis. It measures 25 mm in length. Airways: The central airways are patent. Pleural space: No pneumothorax or pleural effusion. Heart and pericardium: The heart is normal in size. No evidence of right heart strain. No pericardial effusion. No visible coronary artery calcifications. Mediastinum and pranav: Unremarkable. Osseous structures: No aggressive osseous lesion. Upper visualized abdomen: Cholecystectomy. CT/CTA Chest W/WO Contrast IMPRESSION: 1. Probable right distal subsegmental pulmonary emboli. No central pulmonary e mbolism. 2. Small focal peripheral right lower lobe consolidation. Pulmonary infarct is not excluded. Reading Location: [id number]
[2025-02-21 09:57] LABS: Pro- Brain NATRIURETIC PEPTIDE 41 pg/mL (<=450)
[2025-02-21 09:58] LABS: Anion Gap 13 (5-15); BUN 16 mg/dL (4-19); BUN/Creat Ratio 17.9 RATIO (10-20); Calcium,Total 8.9 mg/dL (7.6-11.0); Carbon Dioxide 27.1 mmol/L (21.0-32.0); Chloride 94 mmol/L (98-108); Estimated Creatinine Clearance 99.72 ml/min (50-250); Glucose 336 mg/dL (70-99); Potassium 4.1 mmol/L (3.3-5.1)
--- NOTE | 2025-02-21 09:58 | ED.RN ---
lab called critical of d-dimer of 0.65. dr aguirre
--- NOTE | 2025-02-21 10:00 | RAD_ITS ---
PROCEDURE: RIBS UNIL 2V NO CXR 02/21/2025 REASON FOR EXAM: PAIN TECHNIQUE: Procedure Code: [id number] Modality: DX Procedure: RIBS UNIL 2V NO CXR COMPARISON: None. FINDINGS: Chest radiographs submitted from a rib series demonstrate adequately aerated lungs with central vascular congestion and cardiomegaly. No definitive rib fracture, pleural effusion, focal airspace disease, or pneumothorax evaluation of the bases is limited due to summation artifact from soft tissues. RAD/Ribs Unil 2V No CXR IMPRESSION: Cardiomegaly without definitive rib fracture. Pulmonary evaluation of the base s is limited. Reading Location: [id number]
[2025-02-21] MEDS: 0.9% Normal Saline (500mL Bag) 500 ML 1000 ML IV (10:06)
[2025-02-21 10:12] LABS: Troponin T High Sensitivity 10 ng/L (<=14)
[2025-02-21] MEDS: APIXABAN 5 MG TABLET 10 MG PO ×2 (11:52→21:36)
[2025-02-21 11:56] LABS: Troponin T High Sens 2 HR 15 ng/L (<=14)
--- NOTE | 2025-02-21 12:01 | PCM.HP.STD ---
HPI - General General Date of Admission: 02/21/25 Date of Service: 02/21/25 Chief Complaint: Shortness of breath HPI Narrative TATYANA SPENCE, is a 49 F with past medical history significant COPD who presented to the emergency department with shortness of breath. Per patient she had recently been treated at an outside hospital for COPD With acute exacerbation. Her condition however did not get any better following discharge. She also did notice increasing swelling involving the left lower extremity. Presented to the emergency department as a result. Patient was found to have elevated D-dimer and subsequent CTA did show probable right distal subsegmental pulmonary emboli no central embolism and small focal peripheral right lobe consolidation. Patient was started on Eliquis and admitted for observation [facility] Medical History (Updated 02/21/25 @ 12:[address] Raimundo Hall MD) Diabetes Home Medications ?Medication ?Instructions ?Recorded ?Last Taken ?Type albuterol sulfate 90 mcg/actuation 2 puff inhalation Q6H PRN PRN 07/12/15 Unknown History aerosol inhaler (Ventolin HFA) Asthma albuterol sulfate 2.5 mg/3 mL 2.5 mg inhalation Q6H PRN PRN Sob 11/04/16 Unknown History (0.083 %) solution for nebulization &/Or Wheezing ibuprofen 800 mg tablet 800 mg PO Q8H PRN PRN Pain #20 tabs 11/04/16 Unknown Rx ipratropium bromide 17 1 puff inhalation PRN PRN Sob &/Or 11/04/16 Unknown History mcg/actuation HFA aerosol inhaler Wheezing (Atrovent HFA) ondansetron 4 mg disintegrating 4 mg PO Q8H PRN PRN Nausea #10 tabs 06/23/23 Unknown Rx tablet budesonide-formoterol HFA 80 1 puff inhalation DAILY 02/21/25 Unknown History mcg-4.5 mcg/actuation aerosol inhaler (Symbicort) ipratropium 0.5 mg-albuterol 3 mg 1 continuous nebulization 4X/DAY 02/21/25 Unknown History (2.5 mg base)/3 mL nebulization PRN PRN shortness of breath soln losartan 100 1 tab PO DAILY 02/21/25 Unknown History mg-hydrochlorothiazide 12.5 mg tablet metformin 500 mg tablet 500 mg PO BID 02/21/25 Unknown History Allergy/AdvReac Type Severity Reaction Status Date / Time morphine Allergy Hives Verified 02/21/25 09:13 Surgical History (Updated 02/21/25 @ 09:20 by Veronica Brown) Hx of cholecystectomy Hx of hernia repair Social History Smoking Status: Light Smoker (<10/day) ROS ROS Narrative GENERAL: denies fever, chills, night sweats, weight loss, anorexia HEENT: denies headache, sinus congestion, or drainage, dysphagia RESPIRATORY: cough, sputum production, shortness of breath, dyspnea on exertion CARDIAC: denies chest pain, palpitations, orthopnea, PND GASTROINTESTINAL: denies abdominal pain, nausea, vomiting, melena, GENITOURINARY: denies dysuria, urgency, frequency, heamaturia EXTREMITY: Left lower extremity swelling MUSCULOSKELETAL: denies current joint pain or tenderness NEUROLOGIC: denies focal numbness, weakness, tingling HEMATOLOGIC: denies easy bruising and/or hemorrhage INTEGUMENT: denies rashes PSYCHIATRIC: denies suicidal or homicidal ideation Patient's Goals Of Care . What matters most to you about your health?: Life What would you like to achieve or improve as a result of your hospital stay?: For breathing to improve Vital Signs Vital Signs Vital Signs: 02/21/25 09:09 02/21/25 09:21 02/21/25 09:50 Temperature 98.9 F Temperature Source Oral Pulse Rate 95 Respiratory Rate 16 Respiratory Effort Normal Non-Labored Respiratory Depth Normal Respiratory Pattern Normal Blood Pressure 170/73 H Blood Pressure Mean 105 Pulse Ox 97 94 Oxygen Delivery Method Room Air Room Air Room Air 02/21/25 09:50 02/21/25 11:13 02/21/25 11:55 Temperature 98 F Temperature Source Pulse Rate 86 82 77 Respiratory Rate 22 H 18 22 H Respiratory Effort Respiratory Depth Respiratory Pattern Blood Pressure 151/75 H 143/77 H Blood Pressure Mean 100 99 Pulse Ox 95 95 Oxygen Delivery Method Room Air Weight Weight: 123.377 kg Body Mass Index (BMI) 45.2 Physical Exam Narrative GENERAL: cooperative HEENT: Atraumatic; normocephalic EYES; Anicteric, Normal Conjunctiva NECK; supple, normal thyroid, RESPIRATORY: Diminished to auscultation CARDIOVASCULAR: Regular S1 S2, GI: soft, normoactive bowel sounds, : No Renal angle tenderness; EXTREMITIES: Swelling involving the left lower extremity MUSCULOSKELETAL: no muscle wasting NEURO: Awake; no lateralizing signs. SKIN: No Rash PSYCH; Flat affect Results Lab / Micro Data 02/21/25 09:30 02/21/25 09:30 Labs: Laboratory Results - last 24 hr 02/21/25 09:30: WBC 10.8, RBC 5.05, Hgb 14.1, Hct 45.0, MCV 89.1, MCH 27.9, MCHC 31.3 L, RDW Std Deviation 43.0, RDW Coeff of Camila 13.2, Plt Count 231, MPV 11.4, Immature Gran % (Auto) 0.700, Neut % (Auto) 78.1 H, Lymph % (Auto) 12.0 L, [place] % (Auto) 6.9, Eos % (Auto) 1.8, Baso % (Auto) 0.5, Absolute Neuts (auto) 8.4 H, Absolute Lymphs (auto) 1.30, Nucleated RBC % 0, D-Dimer Quant (PE/DVT) 0.65 H*, Sodium 134, Potassium 4.1, Chloride 94 L, Carbon Dioxide 27.1, Anion Gap 13, BUN 16, Creatinine 0.91, Estim Creat Clear Calc 99.72, Est GFR (MDRD) Non-Af 78, BUN/Creatinine Ratio 17.9, Glucose 336 H, Calcium 8.9, Troponin T High Sens 10, NT pro BNP II 41 02/21/25 11:29: Troponin T Hi Sens 2 Hr 15 H Micro: Microbiology 02/21/25 09:35 Mucosa - Nose SARS-CoV-2, Influenza & RSV (PCR) - Final Imaging Radiology Impression Chest CTA 02/21/25 09:56 IMPRESSION: 1. Probable right distal subsegmental pulmonary emboli. No central pulmonary embolism. 2. Small focal peripheral right lower lobe consolidation. Pulmonary infarct is not excluded. Reading Location: [id number] Ribs X-Ray 02/21/25 10:00 IMPRESSION: Cardiomegaly without definitive rib fracture. Pulmonary evaluation of the bases is limited. Reading Location: [id number] Assessment & Plan Assessment/Plan (1) Pulmonary embolism: PLAN: Plan Patient is a 49-year-old lady presenting with shortness of breath 1. Acute pulmonary embolism ? Possibly provoked by patient recent hospitalization with significant immobilization. Imaging studies obtained on admission did reveal probable right distal subsegmental pulmonary emboli no central embolism and small focal peripheral right lobe consolidation. Patient was started on Eliquis and admitted for observation. As part of patient's evaluation 2D echo within venous duplex involving the swelling left lower extremity ordered 2. COPD ? Currently not in exacerbation plan is to continue patient home regimen?bronchodilators and inhaled corticosteroid 3. Tobacco dependence ? Counseled on cessation, offered nicotine patch for tobacco cravings 4. Class III obesity with BMI of 45.3 ? Complicating care weight loss advised 5. Hypertension ? Blood pressure controlled, home medications continued with dose adjustment as needed 6. Diabetes mellitus type II?uncontrolled with hyperglycemia -patient's oral hypoglycemics held. Placed on long acting insulin, Accu-Cheks a.c. and at bedtime and covered with sliding scale insulin Time spent in the patient's overall evaluation,decision-making process, review of diagnostic data, adjustment of management, discussion with other providers, nursing nursing and ancillary staff involved in patient's care documentation,55 Minutes CODE STATUS; full code discussed with patient Charges/Coding Visit Charges Inpatient E&M: 52159 Init Hosp L2
--- OUTSIDE RECORDS SUMMARY | 2025-02-21 12:24 | XMS RPT_ITS | CCD ---
Author Organization 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 Name Role Phone Unavailable Primary Care Provider [...] Facility (1 source) Morphine Drug Allergy 06-22-2023 [facility] (1 source) Morphine Drug Allergy 06-22-2023 [facility] Repository (1 source) Morphine Drug Allergy [facility] Repository Medications Current Medications Medication Drug Class(es) [...] inhaler (1 source) Anticholinergic Start: 11-04-2016 Ipratropium [place] (Atrovent (Sp)) 12.9 GM inhaler Active 1 [...] 10-13-2023 Chronic Other aftercare (1 source) Other group home (current) drug therapy; Translations: [Other group home (current) drug therapy] Onset: 10-13-2023 Episodic Other nutritional; endocrine; and metabolic disorders (1 source) Morbid (severe) obesity due to excess calories; Translations: [Morbid (severe) obesity due to excess calories] Onset: 10-13-2023 Chronic Results Test Name Value Interpretation Reference Range Facility CBC + DIFFon 10-13-2023 Baso # 0.01 x10EE3/UL Normal 0.00 - 0.10 [facility] Comment on above: Performed By: #### 2 26142 #### [facility],[address] [place] [address] Basophils/100 WBC (Bld) 0.1 % Normal 0.0 - 2.0 [facility] Comment on above: Performed By: #### 2 73951 #### [facility],[address] [place] [address] CBC + DIFF Normal [facility] Comment on above: Result Comment: CBC- COMPLETE BLOOD COUNT Performed By: #### 2 06374 #### [facility],[address] [place] [address] EO # 0.18 x10EE3/UL Normal 0.00 - 0.50 [facility] Comment on above: Performed By: #### 2 86685 #### [place] [address] Eosinophils/100 WBC (Bld) 2.1 % Normal 0.0 - 7.0 [facility] Comment on above: Performed By: #### 2 95536 #### [place] [address] Erythrocyte distribution width (RBC) [Ratio] 14.3 % Normal 12.0 - 15.6 [facility] Comment on above: Performed By: #### 2 12111 #### [place] [address] Hematocrit (Bld) [Volume fraction] 41.8 % Normal 34.0 - 46.0 [facility] Comment on above: Performed By: #### 2 46652 #### [facility],[address] [place] [address] Hemoglobin (Bld) [Mass/Vol] 14.3 g/dL Normal 12.0 - 16.0 [facility] Comment on above: Performed By: #### 2 14899 #### [facility],[address] [place] [address] Lymph # 1.56 x10EE3/UL Normal 0.80 - 2.80 [facility] Comment on above: Performed By: #### 2 78651 #### [address],[place] [address] Lymphocytes/100 WBC (Bld) 17.4 % Low 20.0 - 45.0 [facility] Comment on above: Performed By: #### 2 10053 #### [facility],[address] [place] [address] MANUAL DIFF N/A Normal [facility] Comment on above: Performed By: #### 2 89877 #### [facility],[address] [place] [address] MCH (RBC) [Entitic mass] 28 pg Normal 27 - 33 [facility] Comment on above: Performed By: #### 2 99399 #### [facility],[address] [place] [address] MCHC 34 X10 3 Normal 32 - 36 [facility] Comment on above: Performed By: #### 2 16978 #### [place] [address] MCV (RBC) [Entitic vol] 83 fL Normal 80 - 99 [facility] Comment on above: Performed By: #### 2 23560 #### [facility],[address] [place] [address] [place] # 0.39 x10EE3/UL Normal 0.20 - 1.00 [facility] Comment on above: Performed By: #### 2 85269 #### [facility],[address] [place] [address] MONOS % 4.3 % Normal 0.0 - 10.0 [facility] Comment on above: Performed By: #### 2 22095 #### [place] [address] Morphology Jayson (Bld) [Interp] N/A Normal [facility] Comment on above: Performed By: #### 2 08739 #### [facility],[address],[place] [address] Neut # 6.84 x10EE3/UL Normal 1.50 - 7.10 [facility] Comment on above: Performed By: #### 2 74383 #### [facility],[address] [place] [address]89 Neutrophils/100 WBC (Bld) 76.2 % High 46.0 - 76.0 [facility] Comment on above: Performed By: #### 2 36736 #### [facility],[address] [place] [address]5485 PLATELET 200 x10EE3/UL Normal 150 - 450 [facility] Comment on above: Performed By: #### 2 93292 #### [facility],[address] [place] [address] 78194 Platelet mean volume (Bld) [Entitic vol] 9.0 fL Normal 6.6 - 10.5 [facility] Comment on above: Result Comment: AUTO MATED DIFFERENTIAL Performed By: #### 2 95208 #### [facility],[address] [place] [address] 44164 RBC 5.06 x 10EE6/UL Normal 4.10 - 5.30 [facility] Comment on above: Performed By: #### 2 31745 #### [facility],[address] [place] [address] 27235 WBC 9.0 x 10EE3/UL Normal 4.5 - 10.8 [facility] Comment on above: Performed By: #### 2 69046 #### [facility],[address] [place] [address]1827 CHEST 1 VIEWon 10-13-2023 CHEST 1 VIEW [place] [address] Patient: TATYANA SPENCE Phone#: : 1975 Age: 47 Gender: F Pt. Type: ER Account: [id number] Location: [facility] Ordering: MAU MALDONADO Exam Date: 10/13/2023/20:02 Family Phys: LOVE WHITNEY Charge Code: 256441 Physician: Adams Order #: [id number] Dose#: PROCEDURE: X-RAY CHEST 1 VIEW COMPARISON: [facility], XR, CHEST 2 VIEWS, 03/02/2021, 8:57. [...] Arias MD on 10/14/2023 at 9:30 Normal [facility] CMP with eGFRon 10-13-2023 AGE 47 years Normal [facility] Comment on above: Performed By: #### 2 43727 #### [facility],[address] [place] [address] 16784 Albumin [Mass/Vol] 3.3 g/dL Low 3.4 - 5.0 [facility] Comment on above: Performed By: #### 2 81099 #### [facility],[address] [place] [address] 93186 Albumin/Globulin [Mass ratio] 1.0 {ratio} Normal 0.9 - 1.6 [facility] Comment on above: Performed By: #### 2 47424 #### [facility],[address] [place] [address] 11040 ALK PHOS 100 U/L Normal 46 - 116 [facility] Comment on above: Performed By: #### 2 86936 #### [facility],[address] [place] [address] 56239 ALT [Catalytic activity/Vol] 24 U/L Normal 16 - 63 [facility] Comment on above: Performed By: #### 2 38244 #### [facility],[address] [place] [address] 28462 Anion gap [Moles/Vol] 10 mmol/L Normal 10 - 20 [facility] Comment on above: Performed By: #### 2 83093 #### [facility],[address] [place] [address] 25641 AST [Catalytic activity/Vol] 15 U/L Normal 13 - 39 [facility] Comment on above: Performed By: #### 2 76634 #### [facility],[address] [place] [address] 93768 B/C RATIO 15 ratio Normal 0 - 30 [facility] Comment on above: Performed By: #### 2 44055 #### [facility],[address] [place] [address] 87496 Bilirubin [Mass/Vol] 1.2 mg/dL High 0.2 - 1.0 [facility] Comment on above: Performed By: #### 2 29065 #### [facility],[address] [place] [address] 50400 Calcium [Mass/Vol] 8.6 mg/dL Normal 8.5 - 10.1 [facility] Comment on above: Performed By: #### 2 92885 #### [facility],[address] [place] [address] 03974 Chloride [Moles/Vol] 103 mmol/L Normal 98 - 107 [facility] Comment on above: Performed By: #### 2 26114 #### [facility],[address] [place] [address] 61634 CMP with eGFR Normal [facility] Comment on above: Result Comment: COMP REHENSIVE METABOLIC PANEL Performed By: #### 2 37522 #### [facility],[address] [place] [address] 15577 CO2 [Moles/Vol] 28.3 mmol/L Normal 21.0 - 32.0 [facility] Comment on above: Performed By: #### 2 23532 #### [facility],[address] [place] [address] 56491 Creatinine [Mass/Vol] 0.98 mg/dL Normal 0.55 - 1.02 [facility] Comment on above: Performed By: #### 2 58919 #### [facility],[address] [place] [address] 07714 GFR/1.73 sq M.predicted among non-blacks MDRD (S/P/Bld) [Vol rate/Area] mL/min/{1.73_m2} Normal 60 - 999 [facility] Comment on above: Performed By: #### 2 95415 #### [facility],[address] [place] [address] 79549 Result Comment: ACCO RDING TO THE NATIONAL KIDNEY DISEASE EDUCATION PROGRAM(NKDE), A NORMAL eGFR IS A VALUE GREATER THAN OR EQUAL TO 60 ML/MIN/1.73 SQ METERS. CHRONIC KIDNEY DISEASE: <60mL/MIN/1.73 SQ METERS KIDNEY FAILURE: <15mL/MIN/1.73 SQ METERS THIS TEST SHOULD ONLY BE USED FOR PATIENTS 18 YEARS OF AGE AND OLDER. Globulin (S) [Mass/Vol] 3.4 g/dL Normal 1.5 - 3.8 [facility] Comment on above: Performed By: #### 2 39922 #### [facility],[address] [place] [address] 25880 Glucose [Mass/Vol] 163 mg/dL High 74 - 106 [facility] Comment on above: Performed By: #### 2 84221 #### [facility],[address] [place] [address] 12594 Potassium [Moles/Vol] 3.5 mmol/L Normal 3.5 - 5.1 [facility] Comment on above: Performed By: #### 2 27433 #### [facility],[address] [place] [address] 39765 Protein [Mass/Vol] 6.7 g/dL Normal 6.4 - 8.2 [facility] Comment on above: Performed By: #### 2 10995 #### [facility],[address] [place] [address] 58114 Sodium [Moles/Vol] 138 mmol/L Normal 136 - 145 [facility] Comment on above: Performed By: #### 2 68035 #### [facility],[address] [place] [address] 75561 Urea nitrogen [Mass/Vol] 15 mg/dL Normal 7 - 18 [facility] Comment on above: Performed By: #### 2 72694 #### [facility],[address] [place] [address] 41189 D-DIMER, QUANTITATIVEon 10-02 D-DIMER QUANT <200 Normal 0 - 230 [facility] Comment on above: Performed By: #### 2 09974 #### [facility],[address] [place] [address] 73639 D-DIMER, QUANTITATIVE Normal [facility] Comment on above: Result Comment: MCKAY T D-DIMER Performed By: #### 2 93808 #### [facility],[address] [place] [address] 33873 NT-proBNPon 10-13-2023 Natriuretic peptide B (Bld) [Mass/Vol] 312 pg/mL High 0 - 125 [facility] Comment on above: Performed By: #### 2 70536 #### [facility],[address] [place] [address] 86533 TROPONIN I, HIGH SENSITIVITY on 10-13-2023 HS TROPONIN 8.8 pg/mL Normal 0.0 - 51.4 [facility] Comment on above: Performed By: #### 2 46948 #### [facility],[address] [place] [address] 23033 HS TROPONIN 6.6 pg/mL Normal 0.0 - 51.4 [facility] Comment on above: Performed By: #### 2 62599 #### [facility],[address] [facility] [address] Abdomen/Pelvis without Conto n 06-24-2023 Abdomen/Pelvis without Cont [facility] Imaging Services [address] [place] [address] Abdomen/Pelvis without Cont MR#: [id number] Acct: [id number] Name: TATYANA SPENCE Rep #: [id number] : 1975 F 47 From: Shen Root MD PCP: Dr. Love Whitney MD Status: REG ER Study: Abdomen/Pelvis without Cont Date of Exam: 06/03 03/27 Exam# [id number] Ordering Dr: Zane Sainz DO ADDENDUM by Dr. Shen Root MD on 06/23/23 at 0100 [id number] EXAM: CT ABDOMEN AND PELVIS WITHOUT INTRAVENOUS [...] confirms receipt of the report will follow. [id number] EXAM: CT ABDOMEN AND PELVIS WITHOUT INTRAVENOUS [...] air. CORNELIO (more content not included)... Normal [facility] Basophil percentageOrdered B y: Zane Sainz on 06-23-2023 Lactate [Moles/Vol] 0.7 mmol/L 0.4-2.0 [facility] CBC W/Diff, Automatedon 06-03 Absolute Lymph 1.83 X10 3/uL Normal 0.83-4.51 [facility] Comment on above: Performed By: #### L 501.2450, L500.4050, L100.0100 #### [facility] [address] [place], [address] Absolute Neut 7.0 X10 3/uL Normal 2.0-7.7 [facility] Comment on above: Performed By: #### L 501.2450, L500.4050, L100.0100 #### [facility] [address] [place], [address] Basophils/100 WBC (Bld) 0.5 % Normal 0-1 [facility] Comment on above: Performed By: #### L 501.2450, L500.4050, L100.0100 #### [facility] [address] [place], [address] Eosinophils/100 WBC (Bld) 1.1 % Normal 0-5 [facility] Comment on above: Performed By: #### L 501.2450, L500.4050, L100.0100 #### [facility] [address] [place], [address] Erythrocyte distribution width (RBC) [Ratio] 13.1 % Normal 11.6-14.6 [facility] Comment on above: Performed By: #### L 501.2450, L500.4050, L100.0100 #### [facility] [address] [place], [address] Hematocrit (Bld) [Volume fraction] 46.4 % Normal 37-47 [facility] Comment on above: Performed By: #### L 501.2450, L500.4050, L100.0100 #### [facility] [address] [place], [address] Hemoglobin (Bld) [Mass/Vol] 15.1 g/dL High 12.0-15.0 [facility] Comment on above: Performed By: #### L 501.2450, L500.4050, L100.0100 #### [facility] [address] [place], [address] IG% 0.500 Normal 0.0-0.9 [facility] Comment on above: Result Comment: IG% - Immature Granulocytes (promyelocytes, myelocytes and metamyelocytes) > 1% indicates that a LEFT SHIFT is Present. Performed By: #### L 501.2450, L500.4050, L100.0100 #### [facility] [address] [place], [address] Lymphocytes/100 WBC (Bld) 18.2 % Low 19-41 [facility] Comment on above: Performed By: #### L 501.2450, L500.4050, L100.0100 #### [facility] [address] [place], [address] MCH (RBC) [Entitic mass] 27.4 pg Normal 27.0-32.0 [facility] Comment on above: Performed By: #### L 501.2450, L500.4050, L100.0100 #### [facility] [address] [place], [address] MCHC (RBC) [Mass/Vol] 32.5 g/dL Normal 32-36 [facility] Comment on above: Performed By: #### L 501.2450, L500.4050, L100.0100 #### [facility] [address] [place], [address] MCV (RBC) [Entitic vol] 84.1 fL Normal 81-99 [facility] Comment on above: Performed By: #### L 501.2450, L500.4050, L100.0100 #### [facility] [address] [place], [address] Monocytes/100 WBC (Bld) 10.0 % Normal 0-10 [facility] Comment on above: Performed By: #### L 501.2450, L500.4050, L100.0100 #### [facility] [address] [place], [address] Neutrophils/100 WBC (Bld) 69.7 % Normal 47-70 [facility] Comment on above: Performed By: #### L 501.2450, L500.4050, L100.0100 #### [facility] [address] [place], [address] Nucleated RBC (Bld) [#/Vol] 0 10*3/uL Normal 0-5 [facility] Comment on above: Performed By: #### L 501.2450, L500.4050, L100.0100 #### [facility] [address] [place], [address] Platelet mean volume (Bld) [Entitic vol] 11.2 fL Normal 6.2-12.0 [facility] Comment on above: Performed By: #### L 501.2450, L500.4050, L100.0100 #### [facility] [address] [place], [address] Platelets (Bld) [#/Vol] 176 10*3/uL Normal 150-450 [facility] Comment on above: Performed By: #### L 501.2450, L500.4050, L100.0100 #### [facility] [address] [place], [address] RBC (Bld) [#/Vol] 5.52 10*6/uL High 4.2-5.4 [facility] Comment on above: Performed By: #### L 501.2450, L500.4050, L100.0100 #### [facility] [address] [place], [address] RDW SD 40.3 fl Normal 35.1-43.9 [facility] Comment on above: Performed By: #### L 501.2450, L500.4050, L100.0100 #### [facility] [address] [place], [address] WBC (Bld) [#/Vol] 10.1 10*3/uL Normal 4.4-11.0 [facility] Comment on above: Performed By: #### L 501.2450, L500.4050, L100.0100 #### [facility] [address] [place], [address] Comprehensive Metabolic Prof ilon 06-23-2023 Albumin [Mass/Vol] 3.0 g/dL Low 3.2-5.0 [facility] Comment on above: Performed By: #### L 501.2450, L500.4050, L100.0100 #### [facility] [address] [place], [address] Albumin/Globulin [Mass ratio] 0.7 {ratio} Low 0.9-2.4 [facility] Comment on above: Performed By: #### L 501.2450, L500.4050, L100.0100 #### [facility] [address] [place], [address] ALK P 76 U/L Normal 45-117 [facility] Comment on above: Performed By: #### L 501.2450, L500.4050, L100.0100 #### [facility] [address] [place], [address] ALT [Catalytic activity/Vol] 13 U/L Normal 13-56 [facility] Comment on above: Performed By: #### L 501.2450, L500.4050, L100.0100 #### [facility] [address] [place], [address] AST [Catalytic activity/Vol] 8 U/L Low 15-37 [facility] Comment on above: Performed By: #### L 501.2450, L500.4050, L100.0100 #### [facility] [address] [place], [address] Bilirubin [Mass/Vol] 2.00 mg/dL High 0.20-1.00 [facility] Comment on above: Result Comment: For patients on eltrombopag therapy, use of [place] TBIL is not recommended. Performed By: #### L 501.2450, L500.4050, L100.0100 #### [facility] [address] [place], [address] BUN/CRE 33.0 RATIO High 10-20 [facility] Comment on above: Performed By: #### L 501.2450, L500.4050, L100.0100 #### [facility] [address] [place], [address] CA,Total 8.8 mg/dL Normal 8.5-10.1 [facility] Comment on above: Performed By: #### L 501.2450, L500.4050, L100.0100 #### [facility] [address] [place], [address] Chloride [Moles/Vol] 100 mmol/L Normal 98-107 [facility] Comment on above: Performed By: #### L 501.2450, L500.4050, L100.0100 #### [facility] [address] [place], [address] CO2 [Moles/Vol] 28.0 mmol/L Normal 21.0-32.0 [facility] Comment on above: Performed By: #### L 501.2450, L500.4050, L100.0100 #### [facility] [address] [place], [address] Creatinine [Mass/Vol] 1.03 mg/dL High 0.55-1.02 [facility] Comment on above: Result Comment: The validity of the calculated GFR GFRAA in patients over 70 years has not been determined. Clinical correlation is essential. Performed By: #### L 501.2450, L500.4050, L100.0100 #### [facility] [address] [place], [address] ECRCL 81.58 ml/min Normal [facility] Comment on above: Performed By: #### L 501.2450, L500.4050, L100.0100 #### [facility] [address] [place], [address] EST GFR - AA 74 mL/min Normal >60 [facility] Comment on above: Result Comment: Afri can [place] GFR Calc Performed By: #### L 501.2450, L500.4050, L100.0100 #### [facility] [address] [place], [address] GAP 5 Normal 5-15 [facility] Comment on above: Performed By: #### L 501.2450, L500.4050, L100.0100 #### [facility] [address] [place], [address] GFR/1.73 sq M.predicted among non-blacks MDRD (S/P/Bld) [Vol rate/Area] 61 mL/min/{1.73_m2} Normal >60 [facility] Comment on above: Result Comment: Non- GFR Calc Performed By: #### L 501.2450, L500.4050, L100.0100 #### [facility] [address] [place], [address] Globulin (S) [Mass/Vol] 4.2 g/dL Normal 2.2-4.2 [facility] Comment on above: Performed By: #### L 501.2450, L500.4050, L100.0100 #### [facility] [address] [place], [address] Glucose [Mass/Vol] 153 mg/dL High 74-106 [facility] Comment on above: Result Comment: Fast ing Glucose result greater than or equal to 126 mg/dL suggests DIABETES MELLITUS per A.D.A. criteria. Performed By: #### L 501.2450, L500.4050, L100.0100 #### [facility] [address] [place], [address] Potassium [Moles/Vol] 3.3 mmol/L Low 3.5-5.1 [facility] Comment on above: Performed By: #### L 501.2450, L500.4050, L100.0100 #### [facility] [address] [place], [address] Sodium [Moles/Vol] 133 mmol/L Low 136-145 [facility] Comment on above: Performed By: #### L 501.2450, L500.4050, L100.0100 #### [facility] [address] [place], [address] T PROT 7.2 g/dL Normal 6.4-8.2 [facility] Comment on above: Performed By: #### L 501.2450, L500.4050, L100.0100 #### [facility] [address] [place], [address] Urea nitrogen [Mass/Vol] 34 mg/dL High 7-18 [facility] Comment on above: Performed By: #### L 501.2450, L500.4050, L100.0100 #### [facility] [address] [place], [address] Emergency Department Summary on 06-23-2023 Emergency Department Summary [facility] Medical Records Department [address] [place] [address] Emergency Department Summary 06/22/23 MR#: [id number] Acct: [id number] Name: TATYANA SPENCE Rep #: [id number] : 1975 47 From: Zane [place] PCP: [...] tenderness prese (more content not included)... Normal [facility] Lactic Acidon 06-23-2023 Lactate [Moles/Vol] 0.7 mmol/L Normal 0.4-1.9 [facility] Comment on above: Order Comment: Y Performed By: #### L 503.6005 #### [facility] [address] [place], [address] Lipaseon 06-23-2023 Lipase [Catalytic activity/Vol] 15 U/L Normal 13-75 [facility] Comment on above: Result Comment: Kimmy tolentino note: LIPASE revised reference range effective 22. New Lipase methodology. Expected to produce lower values than the previous assay method. NEW Reference Range: 13 - 75 U/L Performed By: #### L 501.2450, L500.4050, L100.0100 #### [facility] [address] [place], [address] Absolute lymphocyte countOrd ered By: Zane Sainz on 06-22-2023 Lymphocytes Auto (Unsp spec) [#/Vol] 1.83 10*3/uL 0.83-4.51 [facility] Automated lymphocyte count a s percentage of total leukocytesOrdered By: Zane Sainz on 06-22-2023 Lymphocytes/100 WBC Auto (Unsp spec) 18.2 % 19-41 [facility] Basophil percentageOrdered B y: Zane Sainz on 06-22-2023 Basophils/100 WBC (Bld) 0.5 % 0-1 [facility] Bilirubin [Mass/Vol] 2.00 mg/dL 0.20-1.00 [facility] Comment on above: For patients on eltr ombopag therapy, use of [place] TBIL is not recommended. Chloride [Moles/Vol] 100 mmol/L 98-107 [facility] Eosinophils/100 WBC (Bld) 1.1 % 0-5 [facility] [facility] Glucose [Mass/Vol] 153 mg/dL 74-106 [facility] Comment on above: Fasting Glucose resu lt greater than or equal to 126 mg/dL suggests DIABETES MELLITUS per A.D.A. criteria. Hemoglobin (Bld) [Mass/Vol] 15.1 g/dL 12.0-15.0 [facility] Monocytes/100 WBC (Bld) 10.0 % 0-10 [facility] Neutrophils (Bld) [#/Vol] 7.0 10*3/uL 2.0-7.7 [facility] Neutrophils/100 WBC (Bld) 69.7 % 47-70 [facility] Potassium [Moles/Vol] 3.3 mmol/L 3.5-5.1 [facility] Protein [Mass/Vol] 7.2 g/dL 6.4-8.2 [facility] Sodium [Moles/Vol] 133 mmol/L 136-145 [facility] WBC (Bld) [#/Vol] 10.1 10*3/uL 4.4-11.0 [facility] Determination of erythrocyte mean corpuscular volume (MCV)Ordered By: Zane Sainz on 06-22-2023 MCV (RBC) [Entitic vol] 84.1 fL 81-99 [facility] Erythrocyte distribution wid th ratioOrdered By: Zane Sainz on 06-22-2023 Erythrocyte distribution width (RBC) [Ratio] 13.1 % 11.6-14.6 [facility] Erythrocyte distribution wid th standard deviationOrdered By: Zane Sainz on 06-22-2023 Erythrocyte distribution width (RBC) [Entitic vol] 40.3 fL 35.1-43.9 [facility] Hematocrit Auto (Bld) [Volum e fraction]Ordered By: Zane Sainz on 06-22-2023 Hematocrit (Bld) [Volume fraction] 46.4 % 37-47 [facility] Immature granulocytes/100 WB C Auto (Bld)Ordered By: Zane Sainz on 06-22-2023 Immature granulocytes/100 WBC (Bld) 0.500 % 0.0-0.9 [facility] Comment on above: IG% - Immature Granu locytes (promyelocytes, myelocytes and metamyelocytes) > 1% indicates that a LEFT SHIFT is Present. Laboratory - Chemistry and C hemistry - challengeOrdered By: Zane Sainz on 06-22-2023 Albumin/Globulin [Mass ratio] 0.7 {ratio} 0.9-2.4 [facility] ALP [Catalytic activity/Vol] 76 U/L 45-117 [facility] ALT [Catalytic activity/Vol] 13 U/L 13-56 [facility] CO2 [Moles/Vol] 28.0 mmol/L 21.0-32.0 [facility] Globulin (S) [Mass/Vol] 4.2 g/dL 2.2-4.2 [facility] Lipase [Catalytic activity/Vol] 15 U/L 13-75 [facility] Comment on above: Please note:LIPASE r evised reference range effective 22. New Lipase methodology. Expected to produce lower values than the previous assay method. NEW Reference Range: 13 - 75 U/L Urea nitrogen/Creatinine [Mass ratio] 33.0 mg/mg -20 [facility] Laboratory - Hematology and Cell countsOrdered By: Zane Sainz on 06-22-2023 MCH (RBC) [Entitic mass] 27.4 pg 27.0-32.0 [facility] MCHC (RBC) [Mass/Vol] 32.5 g/dL 32-36 [facility] Nucleated RBC/100 WBC (Bld) [Ratio] 0 % 0-5 [facility] Platelet mean volume (Bld) [Entitic vol] 11.2 fL 6.2-12.0 [facility] Platelets (Bld) [#/Vol] 176 10*3/uL 150-450 [facility] No Panel InformationOrdered By: Zane Sainz on 06-22-2023 Estimated Creatinine Clearance Calc 81.58 ml/min [facility] Estimated GFR (MDRD) Amer 74 mL/min >60 [facility] Comment on above: GFR Calc Estimated GFR (MDRD) Non-Af Amer 61 mL/min >60 [facility] Comment on above: Non- GFR Calc RBC Auto (Bld) [#/Vol]Ordere d By: Zane Sainz on 06-22-2023 RBC (Bld) [#/Vol] 5.52 10*6/uL 4.2-5.4 [facility] Serum or plasma calcium daiana urement (mass/volume)Ordered By: Zane Sainz on 06-22-2023 Calcium [Mass/Vol] 8.8 mg/dL 8.5-10.1 [facility] Serum or plasma creatinine m easurement (mass/volume)Ordered By: Zane Sainz on 06-22-2023 Creatinine [Mass/Vol] 1.03 mg/dL 0.55-1.02 [facility] Comment on above: The validity of the calculated GFR & GFRAA in patients over 70 years has not been determined. Clinical correlation is essential. Serum or plasma urea nitroge n measurement (mass/volume)Ordered By: Zane Sainz on 06-22-2023 Urea nitrogen [Mass/Vol] 34 mg/dL 7-18 [facility] Thin prep Papanicolaou smear with manual screeningOrdered By: Zane Sainz on 06-22-2023 Thin prep Papanicolaou smear with manual screening 3.0 g/dL 3.2-5.0 [facility] Thin prep Papanicolaou smear with manual screening 8 U/L 15-37 [facility] Thin prep Papanicolaou smear with manual screening 5 5-15 [facility] ANKLE COMPLETE RTon 03-28-19 24 ANKLE COMPLETE RT [address] [address] Patient: TATYANA SPENCE Phone#: : 1975 Age: 47 Gender: F Pt. Type: ER Account: [id number] Location: 05 Ordering: MAU MALDONADO Exam Date: 03/28/202323:11 Family Phys: LOVE LIZARRAGAMARNIE Charge Code: 480935 Physician: Adams Order #: [id number] Dose#: PROCEDURE: X-RAY ANKLE COMPLETE RT MIN 3 VIEWS COMPARISON: [facility], XR, ANKLE COMPLETE RT, 12/20/2013, 22:41. [...] Sanchez MD on 03/29/2023 at 8:43 [facility] FOOT COMPLETE RTon 4 FOOT COMPLETE RT [address] [address] Patient: TATYANA SPENCE Phone#: : 1975 Age: 47 Gender: F Pt. Type: ER Account: [id number] Location: 052 Ordering: MAU MALDONADO Exam Date: 03/28/2023/23:13 Family Phys: LOVE WHITNEY Charge Code: 365694 Physician: Adams Order #: [id number] Dose#: PROCEDURE: X-RAY FOOT RT COMPLETE MIN 3 VIEWS COMPARISON: [facility], XR, FOOT RT COMPLETE, 11/23/2014, 16:38. [...] Toya Sanchez MD on 03/29/2023 at 8:45 [facility] 12-04-2022 CNPN Telephone (OBGDOV) TATYANA SPENCE ([id number]) 1975 F Date Time Provider Department 12/04/22 RAY HART OBGDOV During your visit today, we recorded the following information about you: Ray Hart, BOX ST[employer]ER.[facility] 12/04/2022 4:24 PM Signed Opened chart in error. Allergies As of Date: 12/04/2022 (Not on File) Date Reviewed: Never Reviewed Problem List As Of Date: 12/04/2022 (None) Encounter Status:Closed by RAY HART on 12/04/22 [facility] .Auto Diffon 09-10-2018 Ammonia (P) [Mass/Vol] 0.90 10 3/mcL Normal 0.15-1.00 [facility] ([place]) Comment on above: Performed By: #### C MARIOLA ROMERO, CHUCHO #### [place] [address] #### BMP, GFR #### [address] [address] Basophils (Bld) [#/Vol] 0.00 10 3/mcL Normal 0.00-0.19 [facility] ([place]) Comment on above: Performed By: #### C BC, ADIFF, ANEU #### [address] [address] #### BMP, GFR #### [address] [address] Basophils/100 WBC (Bld) 0.1 % Normal 0.0-2.5 A [facility] ([place]) Comment on above: Performed By: #### C BC, ADIFF, ANEU #### [place] [address] #### BMP, GFR #### [address] [address] Eosinophils (Bld) [#/Vol] 0.00 10 3/mcL Normal 0.00-0.40 [facility] ([place]) Comment on above: Performed By: #### C BC, ADIFF, ANEU #### [place] [address] #### BMP, GFR #### [address] [address] Eosinophils/100 WBC (Bld) 0.0 % Normal 0.0-7.0 [facility] ([place]) Comment on above: Performed By: #### C BC, ADIFF, ANEU #### [place] [address] #### BMP, GFR #### [address] [address] Lymphocytes (Bld) [#/Vol] 0.90 10 3/mcL Normal 0.77-3.85 [facility] ([place]) Comment on above: Performed By: #### C BC, ADIFF, ANEU #### [place] [address] #### BMP, GFR #### [address] [address] Lymphocytes/100 WBC (Bld) 4.7 % Low 10.0-50.0 [facility] ([place]) Comment on above: Performed By: #### C BC, ADIFF, ANEU #### [address] [address] #### BMP, GFR #### [address] [address] Monocytes/100 WBC (Bld) 4.6 % Normal 1.7-13.0 A [facility] ([place]) Comment on above: Performed By: #### C BC, ADIFF, ANEU #### [address] [address] #### BMP, GFR #### [address] [address] Neutrophils/100 WBC (Bld) 90.6 % High 37.0-80.0 [facility] ([place]) Comment on above: Performed By: #### C BC, ADIFF, ANEU #### [address] [address] #### BMP, GFR #### [address] [address] .GFRon 09-10-2018 GFR 64 ml/min/1.73sqm Normal [facility] ([place]) Comment on above: Result Comment: GFR Population [...] #### C BC, ADIFF, ANEU #### [place] [address] [address] GFR Non- 53 ml/min/1.73sqm Normal [facility] ([place]) Comment on above: Result Comment: GFR Population [...] Performed By: #### C BCMARIOLA, ANEU #### [address] [address] .NEUABSon 09-10-2018 Neutrophils (Bld) [#/Vol] 17.00 10 3/mcL High 2.85-6.16 [facility] ([place]) Comment on above: Performed By: #### C BCMARIOLA, ANEU #### [address] [address] #### BMP, GFR #### [place] [address] BMPon 09-10-2018 Calcium [Mass/Vol] 8.7 mg/dL Normal 8.4-10.2 [facility] ([place]) Comment on above: Performed By: #### C BCGLORIAIFF, ANEU #### [address] [address] Chloride [Moles/Vol] 102 mmol/L Normal 98-107 [facility] ([place]) Comment on above: Performed By: #### C BCGLORIAIFF, ANEU #### [address] [address] CO2 [Moles/Vol] 28 mmol/L Normal 22-29 [facility] [place] Comment on above: Performed By: #### C BCGLORIAIFF, ANEU #### [address] [address] Creatinine [Mass/Vol] 1.14 mg/dL High 0.55-1.02 [facility] ([place]) Comment on above: Performed By: #### C BC, ADIFF, ANEU #### [address] [address] Electrolyte Balance 8.0 mEq/L Normal [facility] ([place]) Comment on above: Performed By: #### C MARIOLA ROMERO, ANEU #### [place] [address] [address] Glucose [Mass/Vol] 219 mg/dL High 70-105 [facility] ([place]) Comment on above: Performed By: #### C MARIOLA ROMERO, ANEU #### [address] [address] Potassium [Moles/Vol] 4.0 mmol/L Normal 3.5-5.1 [facility] ([place] Comment on above: Performed By: #### C MARIOLA ROMERO, ANEU #### [address] [address] Sodium [Moles/Vol] 138 mmol/L Normal 136-145 [facility] ([place]) Comment on above: Performed By: #### C MARIOLA ROMERO, ANEU #### [address] [address] Urea nitrogen [Mass/Vol] 14 mg/dL Normal 7-18 [facility] ([place]) Comment on above: Performed By: #### C NICK, MARIOLA, ANEU #### [address] [address] Urea nitrogen/Creatinine [Mass ratio] 12 ratio Normal 7-27 [facility] ([place]) Comment on above: Performed By: #### C BC, ADIFF, ANEU #### [address] [address] CBCon 09-10-2018 Erythrocyte distribution width (RBC) [Ratio] 14.0 % Normal 11.5-14.5 [facility] ([place]) Comment on above: Performed By: #### C BC, ADIFF, ANEU #### [place] [address] #### BMP, GFR #### [address] [address] Hematocrit (Bld) [Volume fraction] 40.1 % Normal 37.0-47.0 [facility] ([place]) Comment on above: Performed By: #### C BC, ADIFF, ANEU #### [place] [address] #### BMP, GFR #### [place] [address] Hemoglobin (Bld) [Mass/Vol] 13.4 G/dL Normal 12.0-16.0 [facility] ([place]) Comment on above: Performed By: #### C BC, ADIFF, ANEU #### [place] [address] #### BMP, GFR #### [address] [address] MCH (RBC) [Entitic mass] 28.7 pg Normal 27.0-31.2 [facility] ([place]) Comment on above: Performed By: #### C BC, ADIFF, ANEU #### [place] [address] #### BMP, GFR #### [place] [address] MCHC (RBC) [Mass/Vol] 33.4 G/dL Normal 33.0-37.0 [facility] ([place] Comment on above: Performed By: #### C BC, ADIFF, ANEU #### [place] [address] #### BMP, GFR #### [place] [id number] MCV (RBC) [Entitic vol] 86.0 fL Normal 80.0-94.0 A [facility] ([place]) Comment on above: Performed By: #### C BC, ADIFF, ANEU #### [address] [address] #### BMP, GFR #### [address] [address] Platelet mean volume (Bld) [Entitic vol] 9.8 fL Normal 7.4-10.4 [facility] ([place]) Comment on above: Performed By: #### C BC, ADIFF, ANEU #### [place] [address] #### BMP, GFR #### [address] [address] Platelets (Bld) [#/Vol] 216 10 3/mcL Normal 130-400 [facility] ([place]) Comment on above: Performed By: #### C BC, ADIFF, ANEU #### [place] [address] #### BMP, GFR #### [address] [address] RBC (Bld) [#/Vol] 4.66 10 6/mcL Normal 4.20-5.40 [facility] ([place] Comment on above: Performed By: #### C BC, ADIFF, ANEU #### [place] [address] #### BMP, GFR #### [address] [address] WBC (Bld) [#/Vol] 18.80 10 3/mcL High 4.60-10.80 [facility] ([place] Comment on above: Performed By: #### C BC, ADIFF, ANEU #### [place] [address] #### BMP, GFR #### [address] [address] XR KNEE 1 OR 2 VIEWS RIGHTon [...] PM Sign Date: 09/09/2018 3:24:23 PM Normal [facility] ([place]) .Auto Diffon 08-29-2018 Ammonia (P) [Mass/Vol] 0.60 10 3/mcL Normal 0.15-1.00 [facility] ([place]) Comment on above: Performed By: #### C MARIOLA ROMERO ANEU #### [place] [address] [address] Basophils (Bld) [#/Vol] 0.00 10 3/mcL Normal 0.00-0.19 [facility] ([place]) Comment on above: Performed By: #### MARIOLA MENDENHALL ANEU #### [address] [address] Basophils/100 WBC (Bld) 0.3 % Normal 0.0-2.5 A [facility] ([place]) Comment on above: Performed By: #### MARIOLA MENDENHALL ANEU #### [place] [address] [address] Eosinophils (Bld) [#/Vol] 0.10 10 3/mcL Normal 0.00-0.40 [facility] ([place]) Comment on above: Performed By: #### MARIOLA MENDENHALL ANEU #### [address] [address] Eosinophils/100 WBC (Bld) 1.4 % Normal 0.0-7.0 [facility] ([place]) Comment on above: Performed By: #### MARIOLA MENDENHALL ANEU #### [address] [address] Lymphocytes (Bld) [#/Vol] 2.00 10 3/mcL Normal 0.77-3.85 [facility] ([place]) Comment on above: Performed By: #### C BC, ADIFF, ANEU #### [facility] [address] [place], [place] [address] Lymphocytes/100 WBC (Bld) 19.4 % Normal 10.0-50.0 [facility] ([place]) Comment on above: Performed By: #### C BC, ADIFF, ANEU #### [place] [address] [place], [place] [address] Monocytes/100 WBC (Bld) 5.7 % Normal 1.7-13.0 A [facility] ([place]) Comment on above: Performed By: #### C BC, ADIFF, ANEU #### [place] [address] [address] Neutrophils/100 WBC (Bld) 73.2 % Normal 37.0-80.0 [facility] ([place]) Comment on above: Performed By: #### C BC, ADIFF, ANEU #### [place] [address] [place], [place] [address] .GFRon 08-29-2018 GFR 87 ml/min/1.73sqm Normal [facility] ([place]) Comment on above: Result Comment: GFR [...] Performed By: #### B MP, GFR #### [address] [address] GFR Non- 72 ml/min/1.73sqm Normal [facility] ([place]) Comment on above: Result Comment: GFR [...] Performed By: #### B MP, GFR #### [address] [address] .NEUABSon 08-29-2018 Neutrophils (Bld) [#/Vol] 7.70 10 3/mcL High 2.85-6.16 [facility] ([place]) Comment on above: Performed By: #### C BC, MARIOLA, ANEU #### [place] [address] [address] BMPon 08-29-2018 Calcium [Mass/Vol] 8.9 mg/dL Normal 8.4-10.2 [facility] ([place]) Comment on above: Performed By: #### B MP, GFR #### [address] [address] Chloride [Moles/Vol] 100 mmol/L Normal 98-107 [facility] ([place]) Comment on above: Performed By: #### B MP, GFR #### [address] [address] CO2 [Moles/Vol] 30 mmol/L High 22-29 [facility] [place] Comment on above: Performed By: #### B MP, GFR #### [address] [address] Creatinine [Mass/Vol] 0.87 mg/dL Normal 0.55-1.02 [facility] ([place]) Comment on above: Performed By: #### B MP, GFR #### [address] [address] Electrolyte Balance 9.0 mEq/L Normal [facility] ([place]) Comment on above: Performed By: #### B MP, GFR #### [address] [address] Glucose [Mass/Vol] 101 mg/dL Normal 70-105 [facility] ([place]) Comment on above: Performed By: #### B MP, GFR #### [address] [address] Potassium [Moles/Vol] 4.0 mmol/L Normal 3.5-5.1 [facility] ([place]) Comment on above: Performed By: #### B MP, GFR #### [address] [address] Sodium [Moles/Vol] 139 mmol/L Normal 136-145 [facility] ([place]) Comment on above: Performed By: #### B MP, GFR #### [address] [address] Urea nitrogen [Mass/Vol] 12 mg/dL Normal 7-18 [facility] ([place]) Comment on above: Performed By: #### B MP, GFR #### [address] [address] Urea nitrogen/Creatinine [Mass ratio] 14 ratio Normal 7-27 [facility] ([place]) Comment on above: Performed By: #### B MP, GFR #### [address] [address] CBCon 08-29-2018 Erythrocyte distribution width (RBC) [Ratio] 14.5 % Normal 11.5-14.5 [facility] ([place]) Comment on above: Performed By: #### MARIOLA MENDENHALL, ANEU #### [place] [address] [address] Hematocrit (Bld) [Volume fraction] 44.5 % Normal 37.0-47.0 [facility] ([place]) Comment on above: Performed By: #### MARIOLA MENDENHALL, ANEU #### [place] [address] [place], [place] [address] Hemoglobin (Bld) [Mass/Vol] 14.9 G/dL Normal 12.0-16.0 [facility] ([place]) Comment on above: Performed By: #### MARIOLA MENDENHALL, ANEU #### [address] [address] MCH (RBC) [Entitic mass] 28.6 pg Normal 27.0-31.2 [facility] ([place]) Comment on above: Performed By: #### MARIOLA MENDENHALL, ANEU #### [address] [address] MCHC (RBC) [Mass/Vol] 33.5 G/dL Normal 33.0-37.0 [facility] ([place]) Comment on above: Performed By: #### MARIOLA MENDENHALL, ANEU #### [address] [address] MCV (RBC) [Entitic vol] 85.5 fL Normal 80.0-94.0 [facility] ([place]) Comment on above: Performed By: #### MARIOLA MENDENHALL, ANEU #### [address] [address] Platelet mean volume (Bld) [Entitic vol] 9.3 fL Normal 7.4-10.4 [facility] ([place]) Comment on above: Performed By: #### MARIOLA MENDENHALL, ANEU #### [address] [address] Platelets (Bld) [#/Vol] 247 10 3/mcL Normal 130-400 [facility] ([place]) Comment on above: Performed By: #### MARIOLA MENDENHALL, ANEU #### [address] [address] RBC (Bld) [#/Vol] 5.20 10 6/mcL Normal 4.20-5.40 [facility] ([place]) Comment on above: Performed By: #### MARIOLA MENDENHALL, ANEU #### [address] [address] WBC (Bld) [#/Vol] 10.50 10 3/mcL Normal 4.60-10.80 [facility] ([place]) Comment on above: Performed By: #### C BCMARIOLA, ANEU #### [address] [address] [address] KNEE W/O CONTRAST RIGHTon 08-29-2018 CT [...] PM Sign Date: 08/29/2018 2:33:06 PM Normal [facility] ([place]) LUIS by IFAon 05-26-2018 LUIS Pattern ANANOT Normal [facility] Comment on above: Performed By: #### R F, HBA1C #### [facility] Routine Lab [address] [place] [address] #### ANAIFS, CCP #### [facility] [employer] Immuno Assay [address] [place] [address] LUIS Titer Normal Negative [facility] Comment on above: Result Comment: Nega tive Normal range : negatie at <1:80 serum dilution. Performed By: #### R F, HBA1C #### [facility] Routine Lab [address] [place] [address] #### ANAIFS, CCP #### [facility] Immuno Assay [address] [place] [address] Nuclear Ab IF titer (S) Negative Normal Negative C [facility] Reference Lab Comment on above: Performed By: #### R F, HBA1C #### [facility] Routine Lab [address] [place] [address] #### ANAIFS, CCP #### [facility] Immuno Assay [address] [place] [address] CCP Antibody, IgGon 05-27-19 19 CCP Antibody, IgG <15 Normal <20 [facility] Reference Lab Comment on above: Performed By: #### R F, HBA1C #### [facility] Routine Lab [address] [place] [phone] #### ANAIFS, CCP #### [facility] Immuno Assay [address] [place] [address] Hemoglobin A1con 05-24-2018 Hemoglobin A1c/Hemoglobin.total mass fraction (Bld) 5.8 % High 4.3-5.6 [facility] Reference [facility] Comment on above: Performed By: #### R F, HBA1C #### [facility] Routine Lab [address] [place] [phone] #### ANAIFS, CCP #### [facility] Immuno Assay [address] [place] [id number] Hemoglobin A1c/Hemoglobin.total mass fraction (Bld) 120 mg/dL Normal [facility] Reference Lab Comment on above: Performed By: #### R F, HBA1C #### [facility] Routine Lab [address] [place] [address] #### ANAIFS, CCP #### [facility] [address] [place] [address] Rheumatoid Factoron 05-25-19 19 Rheumatoid Factor <10 Normal <16 [facility] Reference Lab Comment on above: Performed By: #### R F, HBA1C #### [facility] Routine Lab [address] [place], [place] [address] #### LUISIFS, CCP #### [facility] Immuno Assay [address] [place], [place] [address] Vital Signs Date Time Vital Sign Value Performing Clinician Adrianna randall 06-23-2023 03:01-0400 Body temperature 98.1 [degF] [facility] 06-23-2023 03:01-0400 Diastolic blood pressure 98 mm[Hg] [facility] 06-23-2023 03:01-0400 Heart rate 95 /min [facility] 06-23-2023 03:01-0400 Respiratory rate 16 /min [facility] 06-23-2023 03:01-0400 SaO2% (BldA) [Mass fraction] 97 % [facility] 06-23-2023 03:01-0400 Systolic blood pressure 156 mm[Hg] [facility] 06-22-2023 23:00-0400 Body height 165.1 cm [facility] 06-22-2023 23:00-0400 Body mass index (BMI) [Ratio] 38 kg/m2 [facility] 06-22-2023 23:00-0400 Body weight 103.8 kg [facility] Encounters Encounter Date Encounter Type Care Provider Facility Start: 10-13-2023 ambulatory LOVE KELLER [facility] Start: 10-13-2023 End: 10-13-2023 Emergency department patient visit LOVE KELLER [facility] Start: 06-23-2023 End: 06-23-2023 Emergency department patient visit Zane Sainz Facility:[facility] Start: 06-22-2023 End: 06-23-2023 Emergency department patient visit [facility] Work Phone: Start: 03-28-2023 End: 03-29-2023 Emergency department patient visit MAU LAU [facility] Start: 12-04-2022 Telephone encounter Ray Coto APRN.CNP Work Phone: [facility] Obstetrics and Gynecology Procedures Date Procedure Procedure Detail Performing Clinician Start: 06-23-2023 CT of abdomen and pe lvis without contrast Plan of Treatment Date Care Activity Detail Author Start: 06-23-2023 [facility] Patient Education Abdominal Pain [facility] Work Phone: Patient referral [facility] Work Phone: Payers Date Payer Category Payer Self-pay [id number] 2015 Unknown [id number] 1975 Unknown [id number] 1975 Unknown [id number] Unknown [id number] Unknown [id number] Social History Date Type Detail Facility Start: 06-22-2023 Tobacco smoking status NHIS Tobacco smoking consumption unknown [facility] Work Phone: Start: 1975 Sex Assigned At Not on file [facility] Gender identity Not on file [facility] Start: 1975 Sex Assigned At Female [facility] Note 12-04-2022 Telephone Encounter - Ray Hart APRN.CNP - 12/04/2022 4:24 PM EDT Note Date & Type Note Facility 12-04-2022 Miscellaneous Notes Formattin g of this note might be different from the original. Opened chart in error. documented in this encounter [facility] Evaluation note Note Date & Type Note Facility Evaluation note No assessment information availa ble [facility] Work Phone: Hospital Discharge instructions Note Date [...] for evaluation. Otherwise follow-up with your doctor. [facility] Work Phone: Summary Purpose Family History No Family History Records FoundNo Family History Records FoundNo Family History Records FoundNo Family History Records FoundNo Family History Records Found Advance Directives No Advanced Directives Records Found Advance Directive Response Recorded Date/ Time Advance Directives No July 11 11:16am Living Will No June 22, 2023 11:03pm Power of Cork Insulator No June 21 11:03pm Chief Complaint and Reason for Visit Chief Complaint ABD PAIN Additional Source Comments INFORMATION SOURCE (unrecogn ized section and content) DATE CREATED AUTHOR 05/28/2018 [facility] DATE CREATED AUTHOR AUTHOR'S ORGANIZ ATION 10/28/2018 [facility] [place] DATE CREATED AUTHOR AUTHOR'S ORGANIZ ATION 12/08/2022 [facility] DATE CREATED AUTHOR AUTHOR'S ORGANIZ ATION 06/30/2023 [facility] DATE CREATED AUTHOR AUTHOR'S ORGANIZ ATION 10/15/2023 [facility] Source Comments (unrecognize d section and content) In the event this informatio n is protected by the Federal Confidentiality of Alcohol and Drug Abuse Patient Records regulations: The Federal rules restrict any use of the information to criminally investigate or prosecute any alcohol or drug abuse patient.[facility] Care Teams (unrecognized sec tion [...] BE BASED ON THE PRIMARY CLINICAL RECORDS. [employer] [facility]. provides no warranty or guarantee of the accuracy or completeness of information in this document.
--- NOTE | 2025-02-21 12:53 | VDLE_ITS ---
Reason For Study Reason For Study: Pulmonary Embolism RIGHT LEFT GSV is normal. GSV is normal. CFV is compressible, spontaneous, phasic, competent CFV is compressible, spontaneous, phasic, competent, and demonstrates normal augmentation. and demonstrates normal augmentation. FV is compressible, spontaneous, phasic, competent FV is compressible, spontaneous, phasic, competent and demonstrates normal augmentation. and demonstrates normal augmentation. POP V is compressible, spontaneous, phasic, competent POP V is compressible, spontaneous, phasic, competent and demonstrates normal augmentation. and demonstrates normal augmentation. T/P Trunk is compressible. T/P Trunk is compressible. PTV is compressible. PTV is compressible. RT PerV is compressible. LT PerV is compressible. Procedure This is a venous duplex using B-mode, color flow and spectral Doppler. Exam performed portable in patient room. A preliminary report was called and/or faxed to Shana LERMA. VL/Venous Duplex US - Karlos Extrem Interpretation Summary Deep veins of the bilateral lower extremities are patent and compressible segme ntally. There is no evidence of bilateral lower extremity deep vein thrombosis. The bilateral great saphenous veins appea r patent and compressible segmentally. Ordering Physician: Raimundo Hall Referring Physician: Shantel Whitney Performed By: Lenore Ordonez, ORION, RVT
[2025-02-21] MEDS: Nicotine (PBKC) 21 MG Patch TD (14:05)
[2025-02-21] MEDS: Insulin Glargine-YFGN 100 UNIT/ML Pen 15 UNIT SC ×2 (14:05→21:36)
[2025-02-21] MEDS: guaiFENesin 10 ML UDC (200MG/10ML) 20 ML PO ×2 (14:13→21:35)
[2025-02-21] MEDS: Albuterol 2.5 MG/3 ML VIAL.NEB. INHALATION ×2 (16:14→20:58)
[2025-02-21] MEDS: Budesonide Respules 0.5 MG/2 ML AMPUL.NEB. INHALATION (20:57)
[2025-02-22 01:40] VITALS: O2SAT 90
[2025-02-22] MEDS: Albuterol 2.5 MG/3 ML VIAL.NEB. INHALATION ×2 (01:42→07:15)
[2025-02-22 01:43] VITALS: PULSE 80; RESP 22
[2025-02-22 02:00] VITALS: BP 148/88; PULSE 80; PULSE 89; RESP 16; TEMP 36.1; O2SAT 100; O2SAT 95
[2025-02-22 06:48] LABS: Hematocrit 41.4 % (37-47); Hemoglobin 13.4 g/dL (12.0-15.0); Immature Granulocytes Count 0.080 X10^3/uL (0.0-0.0); Mean Corp Hgb Conc 32.4 g/dL (32-36); Mean Corpuscular Volume 88.3 fL (81-99); Mean Platelet Vol. 11.3 fl (6.2-12.0); NRBC Flagged by Analyzer 0 % (0-5); Platelet Count 224 K/mm3 (150-450); RBC Distribution Width CV 13.3 % (11.6-14.6); RBC Distribution Width SD 43.0 fl (35.1-43.9); Red Blood Count 4.69 M/mm3 (4.2-5.4); White Blood Count 10.4 K/mm3 (4.4-11.0)
--- NOTE | 2025-02-22 07:11 | PN.HOSP_ITS ---
Reason for Visit Chief Complaint: Shortness of breath Subjective Subjective Patient seen breathing improved. Plans for patient to be assessed for discharge Objective Data Objective Data Vital Signs: Vital Signs Temp Pulse Resp BP Pulse Ox O2 Del Method O2 Flow Rate 97 F L 89 16 148/88 H 95 Nasal Cannula 2 02/22/25 02:00 02/22/25 02:00 02/22/25 02:00 02/22/25 02:00 02/22/25 02:00 02/22/25 03:00 02/22/25 03:00 Oxygen Flow Rate (L/min) 2 Oxygen Delivery Method Nasal Cannula Weight: 123.332 kg Body Mass Index (BMI) 42.5 Intake & Output: Intake and Output for Last 24 Hours 02/20/25 02/21/25 02/22/25 23:59 23:59 23:59 Intake Total 700 / 910 210 / 210 Output Total 0 / 0 Balance 700 / 910 210 / 210 Lab / Micro Data 02/22/25 06:02 02/22/25 06:02 Labs: Laboratory Results - last 24 hr 02/21/25 09:30: WBC 10.8, RBC 5.05, Hgb 14.1, Hct 45.0, MCV 89.1, MCH 27.9, MCHC 31.3 L, RDW Std Deviation 43.0, RDW Coeff of Camila 13.2, Plt Count 231, MPV 11.4, Immature Gran % (Auto) 0.700, Neut % (Auto) 78.1 H, Lymph % (Auto) 12.0 L, Gillespie % (Auto) 6.9, Eos % (Auto) 1.8, Baso % (Auto) 0.5, Absolute Neuts (auto) 8.4 H, Absolute Lymphs (auto) 1.30, Nucleated RBC % 0, D-Dimer Quant (PE/DVT) 0.65 H*, Sodium 134, Potassium 4.1, Chloride 94 L, Carbon Dioxide 27.1, Anion Gap 13, BUN 16, Creatinine 0.91, Estim Creat Clear Calc 99.72, Est GFR (MDRD) Non-Af 78, BUN/Creatinine Ratio 17.9, Glucose 336 H, Calcium 8.9, Troponin T High Sens 10, NT pro BNP II 41 02/21/25 11:29: Troponin T Hi Sens 2 Hr 15 H 02/21/25 13:29: POC Glucose 222 H 02/21/25 16:07: POC Glucose 235 H 02/21/25 21:34: POC Glucose 231 H 02/22/25 06:02: WBC 10.4, RBC 4.69, Hgb 13.4, Hct 41.4, MCV 88.3, MCH 28.6, MCHC 32.4, RDW Std Deviation 43.0, RDW Coeff of Camila 13.3, Plt Count 224, MPV 11.3, Immature Gran % (Auto) 0.800, Neut % (Auto) 72.0 H, Lymph % (Auto) 18.3 L, Gillespie % (Auto) 7.0, Eos % (Auto) 1.6, Baso % (Auto) 0.3, Absolute Neuts (auto) 7.5, Absolute Lymphs (auto) 1.90, Nucleated RBC % 0 02/22/25 06:22: POC Glucose 165 H Micro: Microbiology 02/21/25 09:35 Mucosa - Nose SARS-CoV-2, Influenza & RSV (PCR) - Final Radiography Diagnostic Testing: Radiology Impression Chest CTA 02/21/25 09:56 IMPRESSION: 1. Probable right distal subsegmental pulmonary emboli. No central pulmonary embolism. 2. Small focal peripheral right lower lobe consolidation. Pulmonary infarct is not excluded. Reading Location: [facility] Ribs X-Ray 02/21/25 10:00 IMPRESSION: Cardiomegaly without definitive rib fracture. Pulmonary evaluation of the bases is limited. Reading Location: [facility] Physical Exam Narrative GENERAL: cooperative HEENT: Atraumatic; normocephalic EYES; Anicteric, Normal Conjunctiva NECK; supple, normal thyroid, RESPIRATORY: Diminished to auscultation CARDIOVASCULAR: Regular S1 S2, GI: soft, normoactive bowel sounds, : No Renal angle tenderness; EXTREMITIES: Swelling involving the left lower extremity MUSCULOSKELETAL: no muscle wasting NEURO: Awake; no lateralizing signs. SKIN: No Rash PSYCH; Flat affect Assessment & Plan Assessment/Plan (1) Pulmonary embolism: PLAN: Plan Patient is a 49-year-old lady presenting with shortness of breath 1. Acute pulmonary embolism ? Possibly provoked by patient recent hospitalization with significant immobilization. Imaging studies obtained on admission did reveal probable right distal subsegmental pulmonary emboli no central embolism and small focal peripheral right lobe consolidation. Patient was started on Eliquis and admitted for observation. As part of patient's evaluation 2D echo within venous duplex involving the swelling left lower extremity ordered ? 02/22/2025; patient did remain hemodynamically stable overnight plan is for patient to be assessed for discharge following echo and lower extremity duplex 2. COPD ? Currently not in exacerbation plan is to continue patient home regimen?bronchodilators and inhaled corticosteroid 3. Tobacco dependence ? Counseled on cessation, offered nicotine patch for tobacco cravings 4. Class III obesity with BMI of 45.3 ? Complicating care weight loss advised 5. Hypertension ? Blood pressure controlled, home medications continued with dose adjustment as needed 6. Diabetes mellitus type II?uncontrolled with hyperglycemia -patient's oral hypoglycemics held. Placed on long acting insulin, Accu-Cheks a.c. and at bedtime and covered with sliding scale insulin Time spent in the patient's overall evaluation,decision-making process, review of diagnostic data, adjustment of management, discussion with other providers, nursing nursing and ancillary staff involved in patient's care documentation, 36 Minutes CODE STATUS; full code discussed with patient
[2025-02-22] MEDS: Budesonide Respules 0.5 MG/2 ML AMPUL.NEB. INHALATION (07:15)
[2025-02-22 07:17] VITALS: PULSE 78; RESP 18; O2SAT 97
[2025-02-22 07:21] LABS: Anion Gap 11 (5-15); BUN 12 mg/dL (4-19); BUN/Creat Ratio 14.9 RATIO (10-20); Calcium,Total 8.8 mg/dL (7.6-11.0); Carbon Dioxide 29.6 mmol/L (21.0-32.0); Chloride 99 mmol/L (98-108); Estimated Creatinine Clearance 117.15 ml/min (50-250); Glucose 165 mg/dL (70-99); Magnesium 2.0 mg/dL (1.5-2.2); Potassium 3.7 mmol/L (3.3-5.1)
[2025-02-22 09:03] VITALS: BP 150/82; PULSE 81; RESP 16; TEMP 36.9; O2SAT 98
[2025-02-22] MEDS: APIXABAN 5 MG TABLET 10 MG PO (09:06)
[2025-02-22] MEDS: Insulin Glargine-YFGN 100 UNIT/ML Pen 15 UNIT SC (09:06)
[2025-02-22] MEDS: Nicotine (PBKC) 21 MG Patch TD (09:07)
--- NOTE | 2025-02-22 09:12 | ECHOCS_ITS ---
Reason For Study Reason For Study: Emboli Procedure This was a 2D Doppler, Color Flow transthoracic echocardiogram. The patient is in sinus rhythm. The study was technically difficult. Contrast injection was performed. Exam performed portable in patient room. Left Ventricle Normal LV size. Moderate concentric left ventricular hypertrophy. The estimated ejection fraction is 65-70 %. Normal diastology for age. Right Ventricle Normal RV size. Normal systolic function. Atria The left and right atria are normal. Mitral Valve Mild diffuse mitral valve thickening. There is no mitral valve stenosis. Trivial mitral valve insufficiency. Tricuspid Valve Normal tricuspid valve. There is no tricuspid stenosis. Trivial tricuspid valve insufficiency. Aortic Valve Trisinus/trileaflet aortic valve. There is no aortic stenosis. No aortic valve insufficiency. Pulmonic Valve Not well-visualized. There is no pulmonic valvular stenosis. Trivial pulmonic valve insufficiency. Great Vessels Ascending aorta normal size measured at 3.1 cm. IVC normal size with normal respiratory collapse. Pericardium/Pleural No pericardial effusion. Medication Diluted definity 2ml given slow IV push to enhance endocardial definition. MMode/2D Measurements & Calculations LVIDd: 4.3 cm IVSd: 1.4 cm Ao root diam: 3.1 cm LVIDs: 3.0 cm LVPWd: 1.2 cm RVDd: 4.3 cm FS: 30.8 % LAV(MOD-bp): 64.6 ml LVAd ap4: 38.9 cm2 SV(MOD-sp4): 100.4 ml LAV(MOD-bp) Indexed: 28.1 ml/m2 LVLd ap4: 8.3 cm SI(MOD-sp4): 43.6 ml/m2 LAV(MOD-sp2): 67.7 ml EDV(MOD-sp4): 146.1 ml LAV(MOD-sp4): 62.7 ml EDV(sp4-el): 154.1 ml LVAs ap4: 19.4 cm2 LVLs ap4: 6.6 cm ESV(MOD-sp4): 45.7 ml ESV(sp4-el): 48.0 ml EF(MOD-sp4): 68.7 % EF(sp4-el): 68.9 % SV(sp4-el): 106.1 ml LA A4 area: 20.3 cm2 LA dimension(2D): 4.8 cm RA A4 area: 17.9 cm2 TAPSE: 2.3 cm Time Measurements MV dec time: 0.33 sec Doppler Measurements & Calculations MV E max zia: 77.8 cm/sec Lat Peak E' Zia: 8.3 cm/sec Med Peak E' Zia: 8.8 cm/sec MV A max zia: 107.2 cm/sec E/E' lat: 9.4 E/E' med: 8.8 MV E/A: 0.73 MV V2 max: 109.6 cm/sec MV P1/2t max zia: 89.9 cm/sec Ao V2 max: 196.8 cm/sec MV max P.8 mmHg MV P1/2t: 99.1 msec Ao max P.5 mmHg MV V2 mean: 60.0 cm/sec MV dec slope: 265.8 cm/sec2 Ao V2 mean: 140.6 cm/sec MV mean P.7 mmHg MVA(P1/2t): 2.2 cm2 Ao mean P.6 mmHg MV V2 VTI: 29.9 cm Ao V2 VTI: 39.3 cm LV V1 max: 162.0 cm/sec PA V2 max: 126.0 cm/sec LV V1 max P.5 mmHg ECHO/Echo Complete W/ Contrast Interpretation Summary The estimated ejection fraction is 65-70 %. Normal LV size. Moderate concentric left ventricular hypertrophy. Normal diastology for age. No significant valvular heart disease appreciated. IVC normal size with normal respiratory collapse. Ordering Physician: Raimundo Hall Performed By: Xavier Hallman RCS
--- NOTE | 2025-02-22 09:13 | DS.PCM_ITS ---
Providers Date of Admission: 02/21/25 Date of Discharge: 02/22/25 Primary Care Physician: Dr. Shantel Whitney MD Reason For Visit: PULMONARY EMBOLISM Diagnosis Discharge Diagnosis (1) Pulmonary embolism: Status: Acute Code(s): I26.99 - Other pulmonary embolism without acute cor pulmonale Plan Patient is a 49-year-old lady presenting with shortness of breath 1. Acute pulmonary embolism ? Possibly provoked by patient recent hospitalization with significant immobilization. Imaging studies obtained on admission did reveal probable right distal subsegmental pulmonary emboli no central embolism and small focal peripheral right lobe consolidation. Patient was started on Eliquis and admitted for observation. As part of patient's evaluation 2D echo within venous duplex involving the swelling left lower extremity ordered ? 02/22/2025; patient did remain hemodynamically stable overnight plan is for patient to be assessed for discharge following echo and lower extremity duplex 2. COPD ? Currently not in exacerbation plan is to continue patient home regimen?bronchodilators and inhaled corticosteroid 3. Tobacco dependence ? Counseled on cessation, offered nicotine patch for tobacco cravings 4. Class III obesity with BMI of 45.3 ? Complicating care weight loss advised 5. Hypertension ? Blood pressure controlled, home medications continued with dose adjustment as needed 6. Diabetes mellitus type II?uncontrolled with hyperglycemia -patient's oral hypoglycemics held. Placed on long acting insulin, Accu-Cheks a.c. and at bedtime and covered with sliding scale insulin Time spent in the patient's overall evaluation,decision-making process, review of diagnostic data, adjustment of management, discussion with other providers, nursing nursing and ancillary staff involved in patient's care documentation, 36 Minutes CODE STATUS; full code discussed with patient Medications at Discharge Home Medications albuterol sulfate 90 mcg/actuation aerosol inhaler (Ventolin HFA) 2 puff inhalation Q6H PRN PRN Asthma 07/12/15 albuterol sulfate 2.5 mg/3 mL (0.083 %) solution for nebulization 2.5 mg inhalation Q6H PRN PRN Sob &/Or Wheezing 11/04/16 ibuprofen 800 mg tablet 800 mg PO Q8H PRN PRN Pain #20 tabs 11/04/16 ipratropium bromide 17 mcg/actuation HFA aerosol inhaler (Atrovent HFA) 1 puff inhalation PRN PRN Sob &/Or Wheezing 11/04/16 ondansetron 4 mg disintegrating tablet 4 mg PO Q8H PRN PRN Nausea #10 tabs 06/23/23 budesonide-formoterol HFA 80 mcg-4.5 mcg/actuation aerosol inhaler (Symbicort) 1 puff inhalation DAILY 02/21/25 ipratropium 0.5 mg-albuterol 3 mg (2.5 mg base)/3 mL nebulization soln 1 continuous nebulization 4X/DAY PRN PRN shortness of breath 02/21/25 losartan 100 mg-hydrochlorothiazide 12.5 mg tablet 1 tab PO DAILY HTN 02/21/25 metformin 500 mg tablet 500 mg PO BID Diabetes 02/21/25 apixaban 5 mg tablet 5 mg PO BID #74 tabs 02/22/25 Physical Exam Narrative GENERAL: cooperative HEENT: Atraumatic; normocephalic EYES; Anicteric, Normal Conjunctiva NECK; supple, normal thyroid, RESPIRATORY: Diminished to auscultation CARDIOVASCULAR: Regular S1 S2, GI: soft, normoactive bowel sounds, : No Renal angle tenderness; EXTREMITIES: Swelling involving the left lower extremity MUSCULOSKELETAL: no muscle wasting NEURO: Awake; no lateralizing signs. SKIN: No Rash PSYCH; Flat affect Weight / BMI Weight Weight: 123.332 kg Body Mass Index (BMI) 42.5 ABG / Lab / Microbiology Data 02/22/25 06:02 02/22/25 06:02 Laboratory: Laboratory Results - last 24 hr 02/21/25 09:30: WBC 10.8, RBC 5.05, Hgb 14.1, Hct 45.0, MCV 89.1, MCH 27.9, MCHC 31.3 L, RDW Std Deviation 43.0, RDW Coeff of Camila 13.2, Plt Count 231, MPV 11.4, Immature Gran % (Auto) 0.700, Neut % (Auto) 78.1 H, Lymph % (Auto) 12.0 L, [place] % (Auto) 6.9, Eos % (Auto) 1.8, Baso % (Auto) 0.5, Absolute Neuts (auto) 8.4 H, Absolute Lymphs (auto) 1.30, Nucleated RBC % 0, D-Dimer Quant (PE/DVT) 0.65 H*, Sodium 134, Potassium 4.1, Chloride 94 L, Carbon Dioxide 27.1, Anion Gap 13, BUN 16, Creatinine 0.91, Estim Creat Clear Calc 99.72, Est GFR (MDRD) Non-Af 78, BUN/Creatinine Ratio 17.9, Glucose 336 H, Calcium 8.9, Troponin T High Sens 10, NT pro BNP II 41 02/21/25 11:29: Troponin T Hi Sens 2 Hr 15 H 02/21/25 13:29: POC Glucose 222 H 02/21/25 16:07: POC Glucose 235 H 02/21/25 21:34: POC Glucose 231 H 02/22/25 06:02: WBC 10.4, RBC 4.69, Hgb 13.4, Hct 41.4, MCV 88.3, MCH 28.6, MCHC 32.4, RDW Std Deviation 43.0, RDW Coeff of Camila 13.3, Plt Count 224, MPV 11.3, Immature Gran % (Auto) 0.800, Neut % (Auto) 72.0 H, Lymph % (Auto) 18.3 L, [place] % (Auto) 7.0, Eos % (Auto) 1.6, Baso % (Auto) 0.3, Absolute Neuts (auto) 7.5, Absolute Lymphs (auto) 1.90, Nucleated RBC % 0, Sodium 139, Potassium 3.7, Chloride 99, Carbon Dioxide 29.6, Anion Gap 11, BUN 12, Creatinine 0.80, Estim Creat Clear Calc 117.15, Est GFR (MDRD) Non-Af 91, BUN/Creatinine Ratio 14.9, G lucose 165 H, Hemoglobin A1c 7.5 H, Calcium 8.8, Phosphorus 3.7, Magnesium 2.0 02/22/25 06:22: POC Glucose 165 H Microbiology: Microbiology 02/21/25 09:35 Mucosa - Nose SARS-CoV-2, Influenza & RSV (PCR) - Final Radiography Diagnostic Testing: Radiology Impression Chest CTA 02/21/25 09:56 IMPRESSION: 1. Probable right distal subsegmental pulmonary emboli. No central pulmonary embolism. 2. Small focal peripheral right lower lobe consolidation. Pulmonary infarct is not excluded. Reading Location: [facility] Ribs X-Ray 02/21/25 10:00 IMPRESSION: Cardiomegaly without definitive rib fracture. Pulmonary evaluation of the bases is limited. Reading Location: [id number] D/C Instructions DC O2, CPAP, BIPAP Needs Home O2 Discharge instructions: No Meaningful Use Info Meaningful Use Meaningful Use Diagnoses (Choose all that apply): VTE VTE Anticoag overlap given w/in hospital stay or rx'd at dc?: No Pt receive overlap for 5 days?: No Reason overlap not ordered, prescribed, or given for 5 days: Treatment Not Indicated Discharge Plan Admission Admit Date/Time: 02/21/25 11:56 Attending Provider: Raimundo Hall Primary Care Provider: Shantel Whitney Discharge Orders/Prescriptions Prescriptions: New apixaban 5 mg tablet 5 mg PO BID Qty: 74 0RF Rx Instructions: 10 mg p.o. twice daily 7 days and subsequently 5 mg p.o. BID Continued albuterol sulfate [Ventolin HFA] 1 INHALER inhaler 2 puff inhalation Q6H PRN PRN (Reason: Asthma) albuterol sulfate 2.5 MG/3 ML solution for nebulization 2.5 mg inhalation Q6H PRN PRN (Reason: Sob &/Or Wheezing) Atrovent HFA 12.9 GM inhaler 1 puff inhalation PRN PRN (Reason: Sob &/Or Wheezing) ibuprofen 800 MG tablet 800 mg PO Q8H PRN PRN (Reason: Pain) Qty: 20 0RF ondansetron 4 mg tablet,disintegrating 4 mg PO Q8H PRN PRN (Reason: Nausea) Qty: 10 0RF budesonide-formoterol [Symbicort] 80-4.5 mcg/actuation HFA aerosol inhaler 1 puff INHALATION DAILY ipratropium-albuterol 0.5 mg-3 mg(2.5 mg base)/3 mL solution for nebulization 1 continuous nebulization 4X/DAY PRN PRN (Reason: shortness of breath) metformin 500 mg tablet 500 mg PO BID losartan-hydrochlorothiazide 100-12.5 mg tablet 1 tab PO DAILY Referrals / Follow Up: Shantel Whitney MD [Primary Care Provider, Internal Medicine] Disposition Disposition (needs filled in before D/C Order can be placed): Home, Self Care Charges/Coding Visit Charges Inpatient E&M: 29732 Disch Hosp >30min
[2025-02-22 09:16] VITALS: BP 158/79; PULSE 80; RESP 16; TEMP 36.8; O2SAT 97
--- NOTE | 2025-02-22 11:50 | CASEMGMT ---
Patient has order for discharge. Patient has prescription of Eliquis. RN CM called Marco, $0 copay for Eliquis. RN CM in to discuss needs at discharge. Patient denies needs or help at discharge. Patient had no further questions or concerns.
--- NOTE | 2025-02-22 14:04 | PHA.DC_ITS ---
Pharmacy [facility] Counseling Pharmacy Service has performed discharge medication reconciliation and counseling for this patient. 1. APIXABAN 10MG PO BID X 7 DAYS, THEN 5MG PO BID THEREAFTER The patient's discharge medication list was reviewed for discrepancies and discrepancies were resolved. The patient was counseled on the following discharge medications and changes in medications for homegoing were reviewed. The Reason for Use, instructions for use, and potential side effects were reviewed for all new medications. The patient's questions regarding all of their medications were answered. The patient was able to verbally demonstrate an understanding of their discharge medications. Medications at Discharge Home Medications albuterol sulfate 90 mcg/actuation aerosol inhaler (Ventolin HFA) 2 puff inhalation Q6H PRN PRN Asthma 07/12/15 albuterol sulfate 2.5 mg/3 mL (0.083 %) solution for nebulization 2.5 mg inhalation Q6H PRN PRN Sob &/Or Wheezing 11/04/16 ibuprofen 800 mg tablet 800 mg PO Q8H PRN PRN Pain #20 tabs 11/04/16 ipratropium bromide 17 mcg/actuation HFA aerosol inhaler (Atrovent HFA) 1 puff inhalation PRN PRN Sob &/Or Wheezing 11/04/16 ondansetron 4 mg disintegrating tablet 4 mg PO Q8H PRN PRN Nausea #10 tabs 06/23/23 budesonide-formoterol HFA 80 mcg-4.5 mcg/actuation aerosol inhaler (Symbicort) 1 puff inhalation DAILY 02/21/25 ipratropium 0.5 mg-albuterol 3 mg (2.5 mg base)/3 mL nebulization soln 1 continuous nebulization 4X/DAY PRN PRN shortness of breath 02/21/25 losartan 100 mg-hydrochlorothiazide 12.5 mg tablet 1 tab PO DAILY HTN 02/21/25 metformin 500 mg tablet 500 mg PO BID Diabetes 02/21/25 apixaban 5 mg tablet 5 mg PO BID #74 tabs 02/22/25
== END 2025-02-22 12:56 | disposition home or self-care (01) ==
LOC: ED 09:33 → PCU 12:22
PROVIDERS: Admitting Provider Internal Medicine; Emergency Provider Surgery; PCP Student in an Organized Health Care Education/Training Program; Visit Provider Internal Medicine
DX: I26.99 Other pulmonary embolism without acute cor pulmonale (principal); J44.9 Chronic obstructive pulmonary disease, unspecified; E66.813 Obesity, class 3; Z68.41 Body mass index [BMI] 40.0-44.9, adult; E11.65 Type 2 diabetes mellitus with hyperglycemia; Z79.51 Long term (current) use of inhaled steroids; I10 Essential (primary) hypertension; M79.89 Other specified soft tissue disorders; Z79.899 Other long term (current) drug therapy; Z79.84 Long term (current) use of oral hypoglycemic drugs; F17.200 Nicotine dependence, unspecified, uncomplicated
CPT/HCPCS: 36415; 71100; 71275; 80048; 82962; 83036; 83735; 83880; 84100; 84484; 85025; 85379; 87070; 87205; 87631; 93005; 93306; 93970; 94640; 96360; 99221; 99285; Q9957; Q9967; A4216; C8929; G0378